=== PATIENT | male | born 1945 | race Caucasian/White ===

== ENCOUNTER 2023-07-23 02:11 | Emergency (ER) | payer MEDICARE, OTHER, SELFPAY ==
[2023-07-23 02:13] VITALS: BP 177/90
--- NOTE | 2023-07-23 02:47 | ED.GENMED ---
History of Present Illness
<MARCIA Alegria - Last Filed: 07/23/23 03:57>
General
Chief Complaint: Eye Problems
Source: patient
Exam Limitations: none
Time Seen by Provider: 07/23/23 02:20
Travel History
Have you had any contact with someone who has COVID-19?: No
Do you have any symptoms of coronavirus? Fever > 100 degrees, chills, cough, shortness of breath, sore throat, loss of taste or smell, muscle aches, or headache?: No
History of Present Illness
History of Present Illness:
78 y/o M with history of dry eyes presents to ED complaining of red eye and foreign body sensation in eye starting today. Patient states he felt like a piece of sand when in his eye this morning. He reports it has progressively been worsening and
reddening. Patient has been trying to splash water in eyes and use qtip to remove object but he has not had any relief. Patient does report he has been rubbing his eyes due his dry eyes. He recently saw opto last week for dry eyes and was given
drops and advised compresses. Patient reports tearing. He denies vision changes, headache, or dizziness.
If applicable-neuro sx onset
Onset of symptoms known: Yes
Date of onset of symptoms: 07/22/23
Past History
<MARCIA Alegria - Last Filed: 07/23/23 03:57>
Past History
ED Past Medical History: HTN, Hypercholesterolemia and Other (Prostate cancer with surgery, right knee arthritis, hypertension, hyperlipidemia)
Social History
Tobacco: Former smoker
Alcohol: Occasional
Living: with family
Family History
Family History: Negative Diabetes, Hypertension or CAD
Phy Exam
<MARCIA Alegria - Last Filed: 07/23/23 03:57>
General Physical Exam
General Presentation: well appearing and no apparent distress
General age: appears stated age
General Skin: warm and dry
General Habitus: normal
General Mental: alert
General Hydration: appears well hydrated
ENT Exam
ENT Exam: EOMI, TM's normal and pharynx normal
Eye Exam
Eye Exam: PERRL, EOMI, cornea clear and other (R eye injected with tearing )
Cardiovascular Exam
Cardiovascular Exam: regular rate/rhythm, no edema, no gallop and no murmur
Pulmonary Exam
Pulmonary Exam: lungs clear and no respiratory distress
Neurological Exam
Neurological Exam: alert and oriented x3
Musculoskeletal Exam
Musculoskeletal Exam: full ROM
Skin Exam
Skin Exam: normal color, warm/dry and no rash
Psychiatric Exam
Psychiatric Exam: normal mood/affect
Course
<MARCIA Alegria - Last Filed: 07/23/23 03:57>
Orders/Labs/Results
Orders:
Orders
07/23/23 03:04
Erythromycin (Ilotycin) [Erythromycin 0.5% Ophthalmic Ointment] See Dose Instructions OPHTH NOW STA
07/23/23 03:38
Tetracaine HCl [Tetracaine 0.5% Ophthalmic Solution] 1 drop .ROUTE .STK-MED ONE
07/23/23 03:40
Fluorescein Sodium [Ful-Loreto] 2 mg .ROUTE .STK-MED ONE
Vital Signs
Initial and Last Documented VS:
Initial Vital Signs
Temp Pulse Resp BP Pulse Ox
97.8 F 60 18 177/90 98
07/23/23 02:13 07/23/23 02:13 07/23/23 02:13 07/23/23 02:13 07/23/23 02:13
Last Documented Vital Signs
Temp Pulse Resp BP Pulse Ox
97.8 F 64 14 137/62 98
07/23/23 02:13 07/23/23 03:38 07/23/23 03:38 07/23/23 03:38 07/23/23 02:13
<Mu Ruiz MD - Last Filed: 07/23/23 03:17>
Orders/Labs/Results
Orders:
Orders
07/23/23 03:04
Erythromycin (Ilotycin) [Erythromycin 0.5% Ophthalmic Ointment] See Dose Instructions OPHTH NOW STA
07/23/23 03:38
Tetracaine HCl [Tetracaine 0.5% Ophthalmic Solution] 1 drop .ROUTE .STK-MED ONE
07/23/23 03:40
Fluorescein Sodium [Ful-Loreto] 2 mg .ROUTE .STK-MED ONE
Vital Signs
Initial and Last Documented VS:
Initial Vital Signs
Temp Pulse Resp BP Pulse Ox
97.8 F 60 18 177/90 98
07/23/23 02:13 07/23/23 02:13 07/23/23 02:13 07/23/23 02:13 07/23/23 02:13
Last Documented Vital Signs
Temp Pulse Resp BP Pulse Ox
97.8 F 64 14 137/62 98
07/23/23 02:13 07/23/23 03:38 07/23/23 03:38 07/23/23 03:38 07/23/23 02:13
<MARCIA Alegria - Last Filed: 07/23/23 03:57>
MDM/Problems Addressed
Differential Diagnosis Includes:
Dry eyes
Corneal abrasion
FB
<MARCIA Alegria - Last Filed: 07/23/23 03:57>
*Critical Care Note
Total Time (30-74mins, 75-104mins- exclusive of procedures): Not Applicable
ED Attending Note
<MARCIA Alegria - Last Filed: 07/23/23 03:57>
-
Portions of this chart may have been created with voice recognition software.� Occasional wrong word or��sound alike� substitutions may have occurred due to the inherent limitations of voice recognition software.
<Mu Ruiz MD - Last Filed: 07/23/23 03:17>
ED Attending Note
Patient seen and examined by attending physician: Yes
ED Attending Note:
Patient presents ED secondary to persistent foreign body sensation in his right eye along with redness and pain since this morning. Patient states that his symptoms started after he applied medication and rubbed his eye, which is routine for his
dry eyes. Patient states that his eye was closed at that time. Denies direct trauma. Denies blurred vision. Denies dizziness. Denies previous history of similar symptoms.
Physical Exam
General: mild distress, not acutely ill. afebrile
Head: nc/at. eomi. right eye: injected sclera noted
Neck: supple. normal range of motion
Heart: s1/s2 regular rate and rhythm, no murmur. equal radial pulses.
Lungs: no acute respiratory distress. clear bilaterally
Abdomen: normal bowel sounds. not tender.
Neuro: alert and oriented. no focal neurological deficits
Skin: no rash
Psychiatric: well kept. interactive and cooperative
Extremities: no edema. no calf tenderness.
Local anesthetic applied to his right eye and right eyelid everted, without identification of any foreign body. When fluorescein dye applied, uptake noted at 12:00 region likely indicative of corneal abrasion. However, it is difficult to exclude
entirely potential small foreign body, decision made to apply Dillon lens and irrigate the eye prior to discharge. Erythromycin eye ointment applied prior to discharge, along with referral to geospatial developer for reevaluation next week.
Discharge Plan
Departure
Patient Disposition: Home (Routine Discharge)
Date of Disposition: 07/23/23
Time of Disposition: 03:10
Patient with high blood pressure during this ER visit?: Yes
Condition: Good
Discharge Problem:
Abrasion, corneal
Instructions: Corneal Abrasion (DC)
Prescriptions:
No Action
[id number]-epa-fish oil 1 EACH capsule
1 cap PO DAILY
multivitamin with folic acid [Tab-A-Hadley] 1 TABLET tablet
1 tab PO DAILY
calcium carbonate [Oyster Shell Calcium 500] 500 MG tablet
500 mg PO DAILY
furosemide 40 MG tablet
40 mg PO DAILY Qty: 30 0RF
atorvastatin 20 MG tablet
20 mg PO QPM Qty: 30 0RF
diltiazem HCl 240 MG capsule,extended release 24hr
240 mg PO DAILY Qty: 30 0RF
metoprolol succinate 100 MG tablet extended release 24 hr
100 mg PO BID Qty: 60 0RF
digoxin [Digitek] 0.25 MG tablet
0.25 mg PO NOON Qty: 30 0RF
spironolactone 25 MG tablet
25 mg PO DAILY Qty: 30 0RF
apixaban [Eliquis] 5 MG tablet
5 mg PO BID Qty: 60 0RF
Referrals:
Rufus Schofield MD [Family Provider] -
Jodi Drake MD [Active] -
Activity Restrictions/Additional Instructions:
As discussed, please follow-up with referred geospatial developer for reevaluation next week. Please apply provided abx ointment to your right lower eyelid 5 times daily x 5 days.
Interventions
Interventions:
*Risk Screen - Suicide Last Done: 07/23/23 02:13
*General Assessment Last Done: 07/23/23 03:29
*Neglect/Abuse Screening Last Done: 07/23/23 02:13
*ED COVID-19 Vaccine History Last Done: 07/23/23 02:29
*Nursing Disposition Last Done: 07/23/23 03:40
Discharge Date and Time
Discharge Date/Time: 07/23/23 03:40
[2023-07-23] MEDS: ERYTHROMYCIN 0.5% OPHTHALMIC OINTMENT 1 APPLIC OPHTH (03:30)
--- NOTE | 2023-07-23 03:32 | EDRN ---
Irrigated pt's R eye with 500ml LR using Dillon lens per Dr Ruiz verbal order. Pt tolerated procedure well.
[2023-07-23 03:38] VITALS: BP 137/62
== END 2023-07-23 03:40 | disposition home or self-care (01) ==
LOC: EMR 02:11
PROVIDERS: EMERGENCY PHYSICIAN Emergency Medicine; FAMILY PHYSICIAN Family Medicine
DX: S05.01XA Injury of conjunctiva and corneal abrasion without foreign body, right eye, initial encounter (principal); X58.XXXA Exposure to other specified factors, initial encounter; I10 Essential (primary) hypertension; Z87.891 Personal history of nicotine dependence
CPT/HCPCS: 99283

== ENCOUNTER 2024-05-20 13:01 | Emergency (ER) | payer MEDICARE, OTHER, SELFPAY ==
[2024-05-20] VITALS (26 sets, daily range): BP systolic 107–158; BP diastolic 60–116; BMI 27.9
--- NOTE | 2024-05-20 13:10 | ED.GENMED ---
ED Provider Triage
<AYED Pyle - Last Filed: 05/20/24 13:14>
-
Patient seen by provider in Triage?: Seen in Triage
Attestation: A medical screening examination has been initiated by a qualified medical provider. Based on the assessment performed at this time, it has been determined that an emergent medical condition may exist and the patient has been informed
that further medical evaluation and possible additional diagnostic testing may be needed.
HPI: PT c/o of palpitations today that started while playing golf. He has history of afib. Had Cardioversion in past . Normally he is in NSR. No blood thinners. Pt denies any shortness of breath with this. Pt is followed by DR Awan
GENERAL: Alert , in no apparent distress
EYE: No visual abnormalities.
NECK: Trachea midline
ENT: No visible abnormalities.
LUNGS: No acute respiratory distress
CV: Heart rate irregular tachycardic
NEUROLOGICAL: Alert and oriented
SKIN: Skin intact. No visible changes.
MUSCULOSKELETAL: Moving extremities normally
PSYCH: Normal and appropriate interaction.
This is a medical evaluation conducted in person to initiate diagnostic evaluation and provide initial therapeutics. Please see further documentation by the treating clinician.
Patient's EKG shows A-fib at a heart rate of 143. Patient was taken to the treatment area.
History of Present Illness
<AYDE Pyle - Last Filed: 05/20/24 13:14>
General
Chief Complaint: Heart Rate Problem
Time Seen by Provider: 05/20/24 13:14
<Lucien Ramos DO - Last Filed: 05/20/24 15:59>
General
Source: patient
Exam Limitations: none
History of Present Illness
History of Present Illness:
See MDM
Past History
<AYDE Pyle - Last Filed: 05/20/24 13:14>
Past History
ED Past Medical History: HTN, Hypercholesterolemia and Other (Prostate cancer with surgery, right knee arthritis, hypertension, hyperlipidemia)
Social History
Tobacco: Former smoker
Alcohol: Occasional
Living: with family
Family History
Family History: Negative Diabetes, Hypertension or CAD
<Lucien Ramos, DO - Last Filed: 05/20/24 15:59>
Past History
ED Past Medical History: Arrthythmia
Phy Exam
<Lucien Ramos, DO - Last Filed: 05/20/24 15:59>
Physical Exam
Physical Exam:
See MDM
Course
<AYDE Pyle - Last Filed: 05/20/24 13:14>
Orders/Labs/Results
Orders:
Orders
05/20/24 13:02
EKG [Electrocardiogram (*1)] Urgent
Reason for Study: Palpitations
EKG- Treatment ONCE
05/20/24 13:17
Diltiazem HCl [Cardizem] 20 mg IV NOW STA
05/20/24 13:23
Complete Blood Count/With Diff Urgent
Comprehensive Metabolic Panel Urgent
TSH Reflex To Free T4 Urgent
05/20/24 15:42
Propofol [Diprivan] 20 ml .ROUTE .STK-MED
Abnormal Lab Results
05/20/24
13:23
RBC 3.38 L 10^6/uL
(4.70-6.10)
Hgb 12.2 L g/dL
(13.0-18.0)
Hct 35.9 L %
(39.0-52.0)
MCV 106.2 H fL
(80.0-94.0)
MCH 36.1 H pg
(27.0-31.0)
RDW 14.6 H %
(11.5-14.5)
Abs Immat Gran (auto) 0.1 H 10^3/uL
(0-0.05)
Absolute Monos (auto) 1.0 H 10^3/uL
(0.1-0.6)
Immature Gran % 0.7 H %
(0-0.5)
Lymphocytes % 19.9 L %
(20.5-51.1)
Monocytes % 12.0 H %
(1.7-9.3)
Glucose 118 H mg/dl
(70-99)
AST 73 H U/L
(17-59)
05/20/24 13:23
05/20/24 13:23
Vital Signs
Initial and Last Documented VS:
Initial Vital Signs
Pulse Resp BP Pulse Ox
73 20 143/109 98
05/20/24 13:09 05/20/24 13:09 05/20/24 13:09 05/20/24 13:09
Last Documented Vital Signs
Temp Pulse Resp BP Pulse Ox
98.3 F 114 22 139/86 95
05/20/24 15:48 05/20/24 15:50 05/20/24 15:50 05/20/24 15:50 05/20/24 15:50
<Lucien Ramos, DO - Last Filed: 05/20/24 15:59>
Orders/Labs/Results
Orders:
Orders
05/20/24 13:02
EKG [Electrocardiogram (*1)] Urgent
Reason for Study: Palpitations
EKG- Treatment ONCE
05/20/24 13:17
Diltiazem HCl [Cardizem] 20 mg IV NOW STA
05/20/24 13:23
Complete Blood Count/With Diff Urgent
Comprehensive Metabolic Panel Urgent
TSH Reflex To Free T4 Urgent
05/20/24 15:42
Propofol [Diprivan] 20 ml .ROUTE .STK-MED
Abnormal Lab Results
05/20/24
13:23
RBC 3.38 L 10^6/uL
(4.70-6.10)
Hgb 12.2 L g/dL
(13.0-18.0)
Hct 35.9 L %
(39.0-52.0)
MCV 106.2 H fL
(80.0-94.0)
MCH 36.1 H pg
(27.0-31.0)
RDW 14.6 H %
(11.5-14.5)
Abs Immat Gran (auto) 0.1 H 10^3/uL
(0-0.05)
Absolute Monos (auto) 1.0 H 10^3/uL
(0.1-0.6)
Immature Gran % 0.7 H %
(0-0.5)
Lymphocytes % 19.9 L %
(20.5-51.1)
Monocytes % 12.0 H %
(1.7-9.3)
Glucose 118 H mg/dl
(70-99)
AST 73 H U/L
(17-59)
05/20/24 13:23
05/20/24 13:23
Vital Signs
Initial and Last Documented VS:
Initial Vital Signs
Pulse Resp BP Pulse Ox
73 20 143/109 98
05/20/24 13:09 05/20/24 13:09 05/20/24 13:09 05/20/24 13:09
Last Documented Vital Signs
Temp Pulse Resp BP Pulse Ox
98.3 F 114 22 139/86 95
05/20/24 15:48 05/20/24 15:50 05/20/24 15:50 05/20/24 15:50 12/17/24 15:50
Procedures
<Lucien Ramos, DO - Last Filed: 05/20/24 15:59>
Moderate Sedation
ASA Risk Score: Class II
Chart and allergies reviewed: Yes
Consent for anesthesia obtained: Yes
Time out completed (validating right patient & procedure): Yes
Moderate Sedation Start Time(when first medication is given): 15:48
History of difficult intubation: No
Airway free of obstruction: Yes
Patient has a gag reflex: Yes
Patient is able to open mouth: Yes
Patient has no dentures: No
Patient has no loose teeth: Yes
Medication administered by Provider during Moderate Sedation: IV Propofol (mg)
Total dose administered: 75
Time drug administered: 15:48
Moderate Sedation Procedure End Time: 16:00
Comment: Time out 1546
Cardioversion
Indication:: Afib
Performed by:: Lucien Ramos DO
Synchronized?: Yes
Energy Used: 150 joules
Number of attempts: 1
Successful?: Yes
ASA Risk Score: Class II
Any reaction or bad outcome to prior sedation/anesthesia?: No history of a reaction
Sedation level to be attained: moderate
Chart and allergies reviewed: Yes
Patient reassessed prior to sedation: Yes
Time out completed at (validating right patient & procedure): 15:46
History of difficult intubation: No
Airway free of obstruction: Yes
Patient has a gag reflex: Yes
Patient is able to open mouth: Yes
Patient has no dentures: No
Patient has no loose teeth: No
Medication administered by Provider during Moderate Sedation: IV Propofol (mg)
Total dose administered: 75
Time drug administered: 15:48
Start Time: 15:48
Stop Time: 16:00
<Lucien Ramos, DO - Last Filed: 05/20/24 15:59>
MDM/Problems Addressed
Differential Diagnosis Includes:
HPI and [facility] [place] Narrative:
79-year-old male presenting for evaluation of palpitations since 9 AM. Patient has a history of A-fib and claims compliance with Eliquis. Patient states he has had intermittent episodes over the past several weeks but they were short-lived.
On exam, patient is well-appearing nontoxic but he is tachycardic. EKG confirms A-fib with RVR. Will give dose of Cardizem and obtain basic blood work. If patient remains in symptomatic A-fib, will consent for cardioversion. Patient states he
has tolerated cardioversion in the past without complication
Physical exam
General: Well appearing and non-toxic
HEENT: protecting airway
Neck: appears supple
CV: No evidence of cyanosis. Tachycardic and irregular
Resp: No accessory muscle use
Abd: Non-distended
Extremities: No deformities
Neuro: alert
Psych: Normal affect
Skin: Intact
Problems Addressed including Acute and Chronic Conditions affecting care:
1. A-fib with RVR
Acuity: acute
Prognosis: unstable
Details: Will give dose of IV Cardizem and attempt to chemically cardiovert. If patient remains in symptomatic A-fib, will consider cardioversion. He claims compliance with Eliquis
Updates
2:50 PM patient still tachycardic and in A-fib. Although feeling better, patient signed consent for moderate sedation and synchronized cardioversion
4 PM patient tolerated cardioversion well and without complication. Patient now in sinus rhythm
Differential Diagnosis (but not limited to): A-fib with RVR, ACS, hypothyroidism
Testing considered: Troponin but he is denying chest pain
Drug therapy (if applicable): OTC meds, please see d/c instruction regarding Rx drugs
Amount and/or Complexity of Data Reviewed
Clinical info obtained from: Patient
External data reviewed: N/A
Labs I independently reviewed (but not limited to): Electrolytes within normal limits
Radiology: N/A
Pulse Ox: not hypoxic
EKG independently reviewed: A-fib with RVR, normal axis, no STEMI
Insurance Advisor: A-fib
Critical Care: The high probability of a clinically significant, sudden or life threatening deterioration of the cardiovascular system(s) required my full and direct attention, intervention and personal management. The aggregate critical care time
was 33 minutes. This time is in addition to time spent performing reported procedures but includes the following:
[x] Data Review and interpretation
[x] Patient assessment and monitoring of vital signs
[x] Documentation
[x] Medication orders and management
Risk of Complication:
Social Determinants of health: Good social support
Discussed with other providers: N/A
Escalation of Care includes Admit/Obs: After being observed in the Emergency Department, pt stable for discharge.
Occasional wrong word or 'sound a like' substitutions may have occurred due to the inherent limitations of voice recognition software. Read the chart carefully and recognize, using context, where substitutions have occurred.
<Lucien Ramos DO - Last Filed: 05/20/24 15:59>
*Critical Care Note
Total Time (30-74mins, 75-104mins- exclusive of procedures): 33 min
ED Attending Note
<AYDE Pyle - Last Filed: 05/20/24 13:14>
-
Portions of this chart may have been created with voice recognition software.� Occasional wrong word or��sound alike� substitutions may have occurred due to the inherent limitations of voice recognition software.
Discharge Plan
Departure
Patient Disposition: Home (Routine Discharge)
Date of Disposition: 05/20/24
Time of Disposition: 15:58
Patient with high blood pressure during this ER visit?: No
Discharge Problem:
Atrial fibrillation
Instructions: Atrial Fibrillation (DC), Cardioversion - Discharge instructions, MODERATE SEDATION ADULT
Prescriptions:
No Action
ciunc-0f-zsf-epa-fish oil 1 EACH capsule
1 cap PO DAILY
multivitamin with folic acid [Tab-A-Hadley] 1 TABLET tablet
1 tab PO DAILY
calcium carbonate [Oyster Shell Calcium 500] 500 MG tablet
500 mg PO DAILY
furosemide 40 MG tablet
40 mg PO DAILY Qty: 30 0RF
atorvastatin 20 MG tablet
20 mg PO QPM Qty: 30 0RF
diltiazem HCl 240 MG capsule,extended release 24hr
240 mg PO DAILY Qty: 30 0RF
metoprolol succinate 100 MG tablet extended release 24 hr
100 mg PO BID Qty: 60 0RF
digoxin [Digitek] 0.25 MG tablet
0.25 mg PO NOON Qty: 30 0RF
spironolactone 25 MG tablet
25 mg PO DAILY Qty: 30 0RF
apixaban [Eliquis] 5 MG tablet
5 mg PO BID Qty: 60 0RF
Referrals:
Rufus Schofield MD [Family Provider] -
Activity Restrictions/Additional Instructions:
Please return for any worsening symptoms.
You may return at any time if you have further concerns.
Please follow up with your doctor at the first available appointment, preferably this week.
Thank you for choosing [facility].
Interventions
Interventions:
*Risk Screen - Suicide Last Done: 05/20/24 13:09
*General Assessment Last Done: 05/20/24 13:09
*Neglect/Abuse Screening Last Done: 05/20/24 13:09
ED- Fall Risk Assessment Last Done: 05/20/24 13:25
*ED COVID-19 Vaccine History Last Done: 05/20/24 13:25
ED- Cardiac Assessment Last Done: 05/20/24 13:25
ED- Pulmonary Assessment Last Done: 05/20/24 13:25
Discharge Date and Time
Print Language: BENGALI
[2024-05-20] MEDS: CARDIZEM 20 MG IV (13:26)
--- NOTE | 2024-05-20 13:29 | EDRN ---
Patient with c/o palpitations that started while he was playing golf. Denies c/o chest pain. Patient medicated with Cardizem 20mg IV.
[2024-05-20 13:32] LABS: % Basophils 0.6 % (0-2); % Eosinophils 1.3 % (0-6); % Immature Granulocytes 0.7 % (0-0.5); % Lymphocytes 19.9 % (20.5-51.1); % Neutrophils 65.5 % (42.2-75.2); Absolute Basophils 0.1 10^3/uL (0-0.2); Absolute Eosinophils 0.1 10^3/uL (0-0.7); Absolute Immature Granulocytes 0.1 10^3/uL (0-0.05); Absolute Lymphocytes 1.7 10^3/uL (1.2-3.4); Absolute Neutrophils 5.5 10^3/uL (1.4-6.5); Hematocrit 35.9 % (39.0-52.0); Hemoglobin 12.2 g/dL (13.0-18.0); Mean Corpuscular Hgb 36.1 pg (27.0-31.0); Mean Corpuscular Volume 106.2 fL (80.0-94.0); Mean Platelet Volume 10.2 fL (7.4-10.4); Nucleated Red Blood Cells % 0 % (-); Platelet Count 229 10^3/uL (130-400); Red Blood Cell Count 3.38 10^6/uL (4.70-6.10); Red Cell Dist. Width 14.6 % (11.5-14.5); White Blood Cell Count 8.4 10^3/uL (4.8-10.8)
[2024-05-20 14:14] LABS: ALT (SGPT) 32 U/L (0-50); AST (SGOT) 73 U/L (17-59); Albumin 4.7 g/dl (3.5-5.0); Alkaline Phosphatase 124 U/L (38-126); Blood Urea Nitrogen 18 mg/dl (9-20); Calcium 9.4 mg/dl (8.4-10.2); Carbon Dioxide 22 mmol/L (22-30); Chloride 105 mmol/L (98-107); Estimated Creatinine Clearance 69 ml/min; Glucose 118 mg/dl (70-99); Potassium 4.5 mmol/L (3.5-5.1); Sodium 142 mmol/L (135-145); Total Bilirubin 1.1 mg/dl (0.2-1.3); Total Protein 7.5 g/dl (6.3-8.2); eGFR > 60.00
[2024-05-20 14:20] LABS: TSH Reflex To Free T4 1.59 uIU/ml (0.47-4.68)
--- NOTE | 2024-05-20 15:51 | EDRN ---
Patient received total of Diprivan 75mg IV by . Patient shocked with 150 J. Patient converted into sinus mechelle with PAC's
== END 2024-05-20 17:09 | disposition home or self-care (01) ==
LOC: EMR 13:01
PROVIDERS: Nurse Practitioner; EMERGENCY PHYSICIAN Student in an Organized Health Care Education/Training Program; FAMILY PHYSICIAN Family Medicine
DX: I48.91 Unspecified atrial fibrillation (principal); I10 Essential (primary) hypertension; E78.00 Pure hypercholesterolemia, unspecified; M19.90 Unspecified osteoarthritis, unspecified site; Z79.01 Long term (current) use of anticoagulants; Z85.46 Personal history of malignant neoplasm of prostate; Z87.891 Personal history of nicotine dependence; Z88.6 Allergy status to analgesic agent; Z88.5 Allergy status to narcotic agent
CPT/HCPCS: 99291; 92960; 99152; 96374; 80053; 84443; 85025; 93005

== ENCOUNTER → 2024-08-01 07:26 | Outpatient (REF) | payer MEDICARE, OTHER, SELFPAY | LOC: RAD 07:26 | PROVIDERS: ATTENDING PHYSICIAN Family Medicine; FAMILY PHYSICIAN Family Medicine | DX: M54.50 Low back pain, unspecified (principal); G89.29 Other chronic pain; M54.41 Lumbago with sciatica, right side; M54.42 Lumbago with sciatica, left side | CPT/HCPCS: 72110 ==

== ENCOUNTER → 2024-08-08 12:28 | Outpatient (REF) | payer MEDICARE, OTHER, SELFPAY | LOC: MRI 3T 12:28 | PROVIDERS: ATTENDING PHYSICIAN Physician Assistant; FAMILY PHYSICIAN Family Medicine | DX: M54.16 Radiculopathy, lumbar region (principal) | CPT/HCPCS: 72148 ==

== ENCOUNTER → 2024-09-23 08:01 | Outpatient (REF) | payer MEDICARE, OTHER, SELFPAY | LOC: RCS 08:01 | PROVIDERS: ATTENDING PHYSICIAN Internal Medicine Cardiovascular Disease; FAMILY PHYSICIAN Family Medicine | DX: I77.810 Thoracic aortic ectasia (principal); Z86.79 Personal history of other diseases of the circulatory system | CPT/HCPCS: 93306 ==

== ENCOUNTER 2024-09-30 09:27 | Emergency (ER) | payer MEDICARE, OTHER, SELFPAY ==
[2024-09-30 09:28] VITALS: BP 186/91
[2024-09-30 09:56] VITALS: BMI 28.7
[2024-09-30 10:00] VITALS: BP 153/64
--- NOTE | 2024-09-30 10:38 | ED.GENMED ---
History of Present Illness
<Larry Wolff, DO - Last Filed: 09/30/24 12:26>
General
Chief Complaint: Heart Rate Problem
Time Seen by Provider: 09/30/24 09:47
<Shivam Desai MD, Resident - Last Filed: 09/30/24 13:24>
History of Present Illness
History of Present Illness:
This is a 79-year-old male with past medical history of atrial fibrillation on Eliquis who presents to the ED due to variable heart rate reading and elevated blood pressure. Patient reports he checked his heart rate last night, although
asymptomatic at that time, he noticed his heart rate bounced from the 50s to 80s back to the 50s over a period of a few seconds. In addition he noted that his blood pressure was elevated at 180/97 and on repeat systolic improved to 150. Throughout
this period, He was asymptomatic, denied symptoms of palpitations, syncope, shortness of breath. At bedside today, he has no acute complaints.
Past History
<Larry Wolff, DO - Last Filed: 09/30/24 12:26>
Past History
ED Past Medical History: Arrthythmia, HTN, Hypercholesterolemia and Other (Prostate cancer with surgery, right knee arthritis, hypertension, hyperlipidemia)
Social History
Tobacco: Former smoker
Alcohol: Occasional
Living: with family
Family History
Family History: Negative Diabetes, Hypertension or CAD
<Shivam Desai MD, Resident - Last Filed: 09/30/24 13:24>
Social History
Alcohol: Daily
Drug: None
Review of Systems
<Shivam Desai MD, Resident - Last Filed: 09/30/24 13:24>
Review of Systems
All Other Systems: ROS reviewed and negative except as documented in HPI and ROS
Phy Exam
<Shivam Desai MD, Resident - Last Filed: 09/30/24 13:24>
General Physical Exam
General Presentation: well appearing and no apparent distress
General Skin: warm and dry
General Mental: alert
ENT Exam
ENT Exam: EOMI
Cardiovascular Exam
Cardiovascular Exam: regular rate/rhythm and no edema
Systolic Murmur: 2/6
Pulmonary Exam
Pulmonary Exam: lungs clear and no respiratory distress
Gastrointestinal Exam
Gastrointestinal Exam: normal bowel sounds, non tender and soft
Neurological Exam
Neurological Exam: alert and oriented x3
Musculoskeletal Exam
Musculoskeletal Exam: full ROM
Psychiatric Exam
Psychiatric Exam: normal mood/affect
Course
<Larry Wolff, DO - Last Filed: 09/30/24 12:26>
Orders/Labs/Results
Orders:
Orders
09/30/24 09:31
Electrocardiogram (*1) Urgent
Reason for Study: Atrial Fibrillation
EKG- Treatment ONCE
09/30/24 11:42
Basic Metabolic Panel Urgent
Complete Blood Count/With Diff Urgent
Magnesium Urgent
TSH Reflex To Free T4 Urgent
09/30/24 12:25
Magnesium Oxide 1,000 mg PO NOW STA
Abnormal Lab Results
09/30/24
11:42
RBC 2.98 L 10^6/uL
(4.70-6.10)
Hgb 11.1 L g/dL
(13.0-18.0)
Hct 32.0 L %
(39.0-52.0)
MCV 107.4 H fL
(80.0-94.0)
MCH 37.2 H pg
(27.0-31.0)
Absolute Monos (auto) 1.0 H 10^3/uL
(0.1-0.6)
Lymphocytes % 20.4 L %
(20.5-51.1)
Monocytes % 12.7 H %
(1.7-9.3)
Glucose 111 H mg/dl
(70-99)
Magnesium 1.5 L mg/dl
(1.6-2.3)
09/30/24 11:42
09/30/24 11:42
Vital Signs
Initial and Last Documented VS:
Initial Vital Signs
Temp Pulse Resp BP Pulse Ox
97.6 F 82 16 186/91 98
09/30/24 09:28 09/30/24 09:28 09/30/24 09:28 09/30/24 09:28 09/30/24 09:28
Last Documented Vital Signs
Temp Pulse Resp BP Pulse Ox
97.6 F 59 17 143/72 97
09/30/24 09:28 09/30/24 12:30 09/30/24 12:30 09/30/24 12:00 09/30/24 12:30
<Shivam Desai MD, Resident - Last Filed: 09/30/24 13:24>
Orders/Labs/Results
Orders:
Orders
09/30/24 09:31
Electrocardiogram (*1) Urgent
Reason for Study: Atrial Fibrillation
EKG- Treatment ONCE
09/30/24 11:42
Basic Metabolic Panel Urgent
Complete Blood Count/With Diff Urgent
Magnesium Urgent
TSH Reflex To Free T4 Urgent
09/30/24 12:25
Magnesium Oxide 1,000 mg PO NOW STA
Abnormal Lab Results
09/30/24
11:42
RBC 2.98 L 10^6/uL
(4.70-6.10)
Hgb 11.1 L g/dL
(13.0-18.0)
Hct 32.0 L %
(39.0-52.0)
MCV 107.4 H fL
(80.0-94.0)
MCH 37.2 H pg
(27.0-31.0)
Absolute Monos (auto) 1.0 H 10^3/uL
(0.1-0.6)
Lymphocytes % 20.4 L %
(20.5-51.1)
Monocytes % 12.7 H %
(1.7-9.3)
Glucose 111 H mg/dl
(70-99)
Magnesium 1.5 L mg/dl
(1.6-2.3)
09/30/24 11:42
09/30/24 11:42
Vital Signs
Initial and Last Documented VS:
Initial Vital Signs
Temp Pulse Resp BP Pulse Ox
97.6 F 82 16 186/91 98
09/30/24 09:28 09/30/24 09:28 09/30/24 09:28 09/30/24 09:28 09/30/24 09:28
Last Documented Vital Signs
Temp Pulse Resp BP Pulse Ox
97.6 F 59 17 143/72 97
09/30/24 09:28 09/30/24 12:30 09/30/24 12:30 09/30/24 12:00 09/30/24 12:30
<Shivam Desai MD, Resident - Last Filed: 09/30/24 13:24>
MDM/Problems Addressed
MDM/Problems Addressed:
79-year-old male with past medical history of atrial fibrillation on Eliquis who presents to the ED due to variable heart rate reading and elevated blood pressure. Patient is well appearing in no acute distress, lungs clear to auscultation. EKG on
presentation in NSR with prolonged QTC. At this time, will order labs, and re-evaluate patient.
update: Low Mg level 1.5 on Lab otherwise unremarkable. Will administer Oral MagOxide and discharge home to follow up with PCP.
<Shivam Desai MD, Resident - Last Filed: 09/30/24 13:24>
*Critical Care Note
Total Time (30-74mins, 75-104mins- exclusive of procedures): Not Applicable
ED Attending Note
<Larry Wolff DO - Last Filed: 09/30/24 12:26>
ED Attending Note
Patient seen and examined by attending physician: Yes
I performed a history and physical exam of patient and discussed management with resident, I reviewed resident's note and agree with documented findings and plan of care.: Yes
ED Attending Note:
The patient presents with concerns of variable heart rates. His rates varied from 50s to 80s and reports that his blood pressure was slightly high. He has a history of atrial fibrillation. Review of old records show an echo that showed mildly
dilated aortic root along with moderate to severe mitral regurgitation. This was read by Dr. Hinton. His EKG shows a sinus rhythm, his QTc is slightly prolonged at 480 ms. Will check labs and reassess.
-
Portions of this chart may have been created with voice recognition software.� Occasional wrong word or��sound alike� substitutions may have occurred due to the inherent limitations of voice recognition software.
Discharge Plan
Departure
Patient Disposition: Home (Routine Discharge)
Date of Disposition: 09/30/24
Time of Disposition: 12:19
Patient with high blood pressure during this ER visit?: Yes
Discharge Problem:
Essential (primary) hypertension, Asymptomatic PVCs
Prescriptions:
No Action
koblp-[id number]-ale-epa-fish oil 1 EACH capsule
1 cap PO DAILY
multivitamin with folic acid [Tab-A-Hadley] 1 TABLET tablet
1 tab PO DAILY
calcium carbonate [Oyster Shell Calcium 500] 500 MG tablet
500 mg PO DAILY
furosemide 40 MG tablet
40 mg PO DAILY Qty: 30 0RF
atorvastatin 20 MG tablet
20 mg PO QPM Qty: 30 0RF
diltiazem HCl 240 MG capsule,extended release 24hr
240 mg PO DAILY Qty: 30 0RF
metoprolol succinate 100 MG tablet extended release 24 hr
100 mg PO BID Qty: 60 0RF
digoxin [Digitek] 0.25 MG tablet
0.25 mg PO NOON Qty: 30 0RF
spironolactone 25 MG tablet
25 mg PO DAILY Qty: 30 0RF
apixaban [Eliquis] 5 MG tablet
5 mg PO BID Qty: 60 0RF
Referrals:
Rufus Schofield MD [Family Provider] -
Activity Restrictions/Additional Instructions:
Please return for any new or worsening symptoms.
You may return at any time if you have further concerns.
Thank you for choosing [facility].
Interventions
Interventions:
*Risk Screen - Suicide Last Done: 09/30/24 09:59
*General Assessment Last Done: 09/30/24 09:57
*Neglect/Abuse Screening Last Done: 09/30/24 09:59
*ED- Fall Risk Assessment Last Done: 09/30/24 09:57
*ED COVID-19 Vaccine History Last Done: 09/30/24 09:57
*Nursing Disposition Last Done: 09/30/24 12:41
ED- Cardiac Assessment Last Done: 09/30/24 10:02
ED- Pulmonary Assessment Last Done: 09/30/24 10:02
Discharge Date and Time
Discharge Date/Time: 09/30/24 12:43
Print Language: MALTESE
[2024-09-30 11:00] VITALS: BP 139/66
[2024-09-30 11:51] LABS: % Basophils 0.8 % (0-2); % Eosinophils 2.7 % (0-6); % Immature Granulocytes 0.4 % (0-0.5); % Lymphocytes 20.4 % (20.5-51.1); % Monocytes 12.7 % (1.7-9.3); Absolute Basophils 0.1 10^3/uL (0-0.2); Absolute Eosinophils 0.2 10^3/uL (0-0.7); Absolute Lymphocytes 1.6 10^3/uL (1.2-3.4); Absolute Neutrophils 4.8 10^3/uL (1.4-6.5); Hemoglobin 11.1 g/dL (13.0-18.0); Mean Corp Hgb Conc. 34.7 g/dL (33.0-37.0); Mean Corpuscular Hgb 37.2 pg (27.0-31.0); Mean Corpuscular Volume 107.4 fL (80.0-94.0); Mean Platelet Volume 9.7 fL (7.4-10.4); Nucleated Red Blood Cells % 0.3 % (-); Platelet Count 181 10^3/uL (130-400); Red Blood Cell Count 2.98 10^6/uL (4.70-6.10); Red Cell Dist. Width 14.3 % (11.5-14.5); White Blood Cell Count 7.7 10^3/uL (4.8-10.8)
[2024-09-30 12:00] VITALS: BP 143/72
[2024-09-30 12:03] LABS: Blood Urea Nitrogen 18 mg/dl (9-20); Calcium 9.5 mg/dl (8.4-10.2); Carbon Dioxide 26 mmol/L (22-30); Chloride 107 mmol/L (98-107); Estimated Creatinine Clearance 75 ml/min; Glucose 111 mg/dl (70-99); Magnesium 1.5 mg/dl (1.6-2.3); Potassium 5.1 mmol/L (3.5-5.1); Sodium 140 mmol/L (135-145); eGFR > 60.00
[2024-09-30] MEDS: MAGNESIUM OXIDE 1000 MG PO (12:33)
[2024-09-30 12:34] LABS: TSH Reflex To Free T4 1.05 uIU/ml (0.47-4.68)
== END 2024-09-30 12:43 | disposition home or self-care (01) ==
LOC: EMR 09:27
PROVIDERS: EMERGENCY PHYSICIAN Emergency Medicine; FAMILY PHYSICIAN Family Medicine
DX: I49.3 Ventricular premature depolarization (principal); I10 Essential (primary) hypertension; I48.91 Unspecified atrial fibrillation; E78.00 Pure hypercholesterolemia, unspecified; I34.0 Nonrheumatic mitral (valve) insufficiency; Z85.46 Personal history of malignant neoplasm of prostate; Z87.891 Personal history of nicotine dependence; Z79.01 Long term (current) use of anticoagulants
CPT/HCPCS: 99284; 80048; 83735; 84443; 85025; 93005

== ENCOUNTER 2024-10-20 23:58 | Emergency (ER) | payer MEDICARE, OTHER, SELFPAY ==
[2024-10-21 00:04] VITALS: BP 131/70; BMI 29.0
--- NOTE | 2024-10-21 00:20 | EDRN ---
Patient had knife with him, placed in a bag and labeled and given to security to lock in the safe.
[2024-10-21 00:49] LABS: % Basophils 0.9 % (0-2); % Eosinophils 2.6 % (0-6); % Immature Granulocytes 0.3 % (0-0.5); % Lymphocytes 36.5 % (20.5-51.1); % Neutrophils 52.7 % (42.2-75.2); Absolute Basophils 0.1 10^3/uL (0-0.2); Absolute Eosinophils 0.2 10^3/uL (0-0.7); Absolute Lymphocytes 2.5 10^3/uL (1.2-3.4); Absolute Monocytes 0.5 10^3/uL (0.1-0.6); Absolute Neutrophils 3.6 10^3/uL (1.4-6.5); Hematocrit 33.9 % (39.0-52.0); Hemoglobin 11.8 g/dL (13.0-18.0); Mean Corp Hgb Conc. 34.8 g/dL (33.0-37.0); Mean Corpuscular Hgb 37.2 pg (27.0-31.0); Mean Corpuscular Volume 106.9 fL (80.0-94.0); Mean Platelet Volume 10.3 fL (7.4-10.4); Nucleated Red Blood Cells % 0 % (-); Platelet Count 130 10^3/uL (130-400); Red Blood Cell Count 3.17 10^6/uL (4.70-6.10); Red Cell Dist. Width 14.1 % (11.5-14.5); White Blood Cell Count 6.8 10^3/uL (4.8-10.8)
[2024-10-21 00:53] LABS: Troponin I 0.019 ng/ml
[2024-10-21 00:58] LABS: ALT (SGPT) 43 U/L (0-50); AST (SGOT) 109 U/L (17-59); Alkaline Phosphatase 201 U/L (38-126); Blood Urea Nitrogen 34 mg/dl (9-20); Calcium 8.4 mg/dl (8.4-10.2); Carbon Dioxide 20 mmol/L (22-30); Chloride 115 mmol/L (98-107); Estimated Creatinine Clearance 60 ml/min; Glucose 111 mg/dl (70-99); Potassium 4.6 mmol/L (3.5-5.1); Sodium 146 mmol/L (135-145); Total Bilirubin 0.6 mg/dl (0.2-1.3); Total Protein 6.9 g/dl (6.3-8.2); eGFR > 60.00
[2024-10-21 01:00] VITALS: BP 122/67
[2024-10-21 01:39] VITALS: BP 129/68
[2024-10-21 02:00] VITALS: BP 128/65
--- NOTE | 2024-10-21 02:05 | ED.GENMED ---
History of Present Illness
General
Chief Complaint: Fainting/Passed Out
Source: patient, spouse and ambulance crew
Exam Limitations: none
Time Seen by Provider: 10/21/24 00:32
Nursing documentation reviewed up to this point in time: agreed with
History of Present Illness
History of Present Illness:
79-year-old male with past medical history of hypertension, hyperlipidemia, atrial fibrillation on Eliquis, mitral regurgitation who presents to the emergency room for evaluation after syncopal episode. Patient reports that he was sitting in his
chair watching TV and he got up 'and the next thing I know, I am on the ground.' He believes he passed out. He does not believe he hit his head or sustain any traumatic injuries. He says he did not have any chest pain or palpitations prior to the
episode and has not had the symptoms since. He says he has chronic fatigue, leg weakness, shortness of breath that has been attributed to mitral regurgitation and spinal stenosis but says these symptoms are not acutely changed.
Past History
Past History
ED Past Medical History: Arrthythmia, HTN, Hypercholesterolemia and Other (Prostate cancer with surgery, right knee arthritis, hypertension, hyperlipidemia)
Social History
Tobacco: Former smoker
Alcohol: Daily
Drug: None
Living: with family
Family History
Family History: Negative Diabetes, Hypertension or CAD
Review of Systems
Review of Systems
All Other Systems: ROS reviewed and negative except as documented in HPI and ROS
Constitutional: Denies fever
Respiratory: Denies trouble breathing
Cardiac: Reports syncope; Denies chest pain or palpitations
ABD/GI: Denies abdominal pain, nausea or vomiting
: Denies flank pain
Musculoskeletal: Denies neck pain or back pain
Neurological: Denies headache
Phy Exam
Physical Exam
Physical Exam:
General: Awake, alert, oriented x3; no acute distress
Head: Normocephalic, atraumatic
Eyes: Conjunctiva normal
Throat: Airway intact, handling secretions
Neck: Trachea midline, no cervical spine tenderness and full range of motion without pain
Lungs: Clear to auscultation bilaterally, no wheezing, rales, rhonchi
Heart: Regular rate and rhythm, systolic murmur
Abd: Soft, non distended, nontender with no masses
Back: No signs of trauma the back or flank and no tenderness in the thoracic or lumbar spine
Neuro: Cranial nerves grossly intact, speech fluid, no gross motor or sensory deficits
Extremities: Atraumatic, no edema in extremities, equal pulses in all extremities
Scores
Heart Failure Risk
Heart Failure Risk Score: Not Applicable
Heart Score for Chest Pain Patients
STEMI patient?: Not applicable
Withdrawal Assessment of Alcohol
Withdrawal Assessment Completed?: Not applicable
Course
Orders/Labs/Results
Orders:
Orders
10/21/24 00:03
Electrocardiogram (*1) Urgent
Reason for Study: Syncope
Cardiac Monitoring- Treatment ONCE
EKG- Treatment ONCE
IV Insert/Care/Rem.- Treatment PRN
O2 Therapy [RESP] Urgent
Titrate/Wean O2 to maintain O2 sat greater than (%): 90
Special Instructions: Maintain sats >/=90%
Pulse Ox/spot Check [RESP] Urgent
Quantity: 1
Special Instructions: ON ROOM AIR
10/21/24 00:17
Complete Blood Count/With Diff Urgent
Comprehensive Metabolic Panel Urgent
Troponin I Urgent
10/21/24 00:50
CT Head W/o Iv Contrast Urgent
Comment:
Reason For Exam: syncope and fall, on AC
Abnormal Lab Results
10/21/24
00:17
RBC 3.17 L 10^6/uL
(4.70-6.10)
Hgb 11.8 L g/dL
(13.0-18.0)
Hct 33.9 L %
(39.0-52.0)
MCV 106.9 H fL
(80.0-94.0)
MCH 37.2 H pg
(27.0-31.0)
Sodium 146 H mmol/L
(135-145)
Chloride 115 H mmol/L
(98-107)
Carbon Dioxide 20 L mmol/L
(22-30)
BUN 34 H mg/dl
(9-20)
Glucose 111 H mg/dl
(70-99)
AST 109 H U/L
(17-59)
Alkaline Phosphatase 201 H U/L
(38-126)
10/21/24 00:17
10/21/24 00:17
Vital Signs
Initial and Last Documented VS:
Initial Vital Signs
Temp Pulse Resp BP Pulse Ox
36.3 C 61 18 131/70 98
10/21/24 00:04 10/21/24 00:04 10/21/24 00:04 10/21/24 00:04 10/21/24 00:04
Last Documented Vital Signs
Temp Pulse Resp BP Pulse Ox
36.3 C 56 14 128/65 94
10/21/24 00:04 10/21/24 02:15 10/21/24 02:15 10/21/24 02:00 10/21/24 02:15
MDM/Problems Addressed
Differential Diagnosis Includes:
Valvular issue, dysrhythmia, orthostatic hypotension, dehydration, electrolyte derangement
MDM/Problems Addressed:
79-year-old male presents after syncopal event when standing up from his seat. He does have known history of mitral regurgitation he follows with Dr. Awan for cardiology. Vitals and exam as above. EKG shows sinus bradycardia. Labs were sent
including a CBC and a CMP which showed no clinically significant abnormalities. His troponin is negative. CT head pending. Monitor on telemetry and reassess after the above.
CT head negative for any acute pathology. Patient has been sinus rhythm on monitor throughout ED observation for 3 hours. He feels well on clinical reassessment with stable vital signs. I had a long discussion with patient and . We spoke
about potentially admitting for observation versus discharge with close outpatient cardiology follow-up after this episode. Using shared decision making we will discharge�will refer via chest pain hotline in order to expedite outpatient follow-up
with cardiology. Patient feels comfortable with this. Spoke about return precautions and all questions answered.
Chronic conditions affecting care:
Atrial fibrillation
*Radiology
Radiology exam reviewed: radiology read reviewed
*Pulse Oximetry
Patient hypoxic: no
*EKG
Interpreted by ED Provider?: Yes
Heart Rate: 54
Rate: bradycardiac
Rhythm: sinus
Anita: normal axis
Interval: normal interval
QRS Pattern: normal QRS
Ischemia: no ischemia
*Critical Care Note
Total Time (30-74mins, 75-104mins- exclusive of procedures): Not Applicable
Data Reviewed
Source: patient, records and spouse
Patient Management
Escalation/DeEscalation of care consider admission/obs:
Considered admission�shared decision making discharged with close cardiology follow-up
Update Note
Update Note:
Reviewed echocardiogram from 09/23/2024�showed EF of 65 to 70%, mitral valve prolapse and moderate to severe mitral regurg, mild tricuspid regurg, dilated aortic root.
Reviewed MRI of the lumbar spine from 08/08/2024 which showed abnormal marrow signal intensity which patient is being evaluated for on an outpatient basis. It also showed multilevel degenerative changes, nerve root compression.
ED Attending Note
-
Portions of this chart may have been created with voice recognition software.� Occasional wrong word or��sound alike� substitutions may have occurred due to the inherent limitations of voice recognition software.
Discharge Plan
Departure
Patient Disposition: Home (Routine Discharge)
Date of Disposition: 10/21/24
Time of Disposition: 02:57
Patient with high blood pressure during this ER visit?: No
Discharge Problem:
Syncope and collapse
Instructions: Syncope (Fainting) (DC), Chest Pain CBC Follow Up
Prescriptions:
No Action
ekeaw-3q-gww-epa-fish oil 1 EACH capsule
1 cap PO DAILY
multivitamin with folic acid [Tab-A-Hadley] 1 TABLET tablet
1 tab PO DAILY
calcium carbonate [Oyster Shell Calcium 500] 500 MG tablet
500 mg PO DAILY
furosemide 40 MG tablet
40 mg PO DAILY Qty: 30 0RF
atorvastatin 20 MG tablet
20 mg PO QPM Qty: 30 0RF
diltiazem HCl 240 MG capsule,extended release 24hr
240 mg PO DAILY Qty: 30 0RF
metoprolol succinate 100 MG tablet extended release 24 hr
100 mg PO BID Qty: 60 0RF
digoxin [Digitek] 0.25 MG tablet
0.25 mg PO NOON Qty: 30 0RF
spironolactone 25 MG tablet
25 mg PO DAILY Qty: 30 0RF
apixaban [Eliquis] 5 MG tablet
5 mg PO BID Qty: 60 0RF
Referrals:
Rufus Schofield MD [Family Provider] -
Dave Awan MD [Active] - Follow up in 2-3 days
Activity Restrictions/Additional Instructions:
Thank you for visiting the Emergency Department at [facility].
1. Please schedule a follow up appointment as directed. Call first thing tomorrow morning to make an appointment.
2. If indicated, please take your medications as instructed and indicated on discharge paperwork.
3. If any of your symptoms do not improve, or persist, or become more severe within 6-12 hours, please return to the emergency department for further care.
4. Please return to the emergency department if you develop a headache, neck pain/stiffness, fever greater than 100.4F, chest pain, shortness of breath, persistent nausea, vomiting, slurred speech, difficulty walking, numbness/tingling, weakness,
signs of infection or any other symptoms that are worrisome to you.
Please call [phone] if you have any questions.
Interventions
Interventions:
*Risk Screen - Suicide Last Done: 10/21/24 00:04
*General Assessment Last Done: 10/21/24 00:04
*Neglect/Abuse Screening Last Done: 10/21/24 00:04
*ED- Fall Risk Assessment Last Done: 10/21/24 00:04
ED- Cardiac Assessment Last Done: 10/21/24 00:20
ED- Neurological Assessment Last Done: 10/21/24 00:20
Discharge Date and Time
Print Language: ITALIAN
[2024-10-21 03:00] VITALS: BP 126/68
== END 2024-10-21 03:11 | disposition home or self-care (01) ==
LOC: EMR 23:58
PROVIDERS: Emergency Medicine; EMERGENCY PHYSICIAN Emergency Medicine; FAMILY PHYSICIAN Family Medicine
DX: R55 Syncope and collapse (principal); I10 Essential (primary) hypertension; E78.00 Pure hypercholesterolemia, unspecified; I48.91 Unspecified atrial fibrillation; I34.0 Nonrheumatic mitral (valve) insufficiency; Z79.01 Long term (current) use of anticoagulants; Z87.891 Personal history of nicotine dependence
CPT/HCPCS: 99284; 70450; 80053; 84484; 85025; 93005

== ENCOUNTER → 2024-10-30 07:10 | Outpatient (REF) | payer MEDICARE, OTHER, SELFPAY ==
[2024-10-30 07:32] LABS: % Eosinophils 4.9 % (0-6); % Immature Granulocytes 0.5 % (0-0.5); % Lymphocytes 19.8 % (20.5-51.1); % Monocytes 10.9 % (1.7-9.3); % Neutrophils 62.9 % (42.2-75.2); Absolute Basophils 0.1 10^3/uL (0-0.2); Absolute Eosinophils 0.3 10^3/uL (0-0.7); Absolute Lymphocytes 1.2 10^3/uL (1.2-3.4); Absolute Monocytes 0.7 10^3/uL (0.1-0.6); Absolute Neutrophils 3.9 10^3/uL (1.4-6.5); Hematocrit 34.4 % (39.0-52.0); Hemoglobin 11.7 g/dL (13.0-18.0); Mean Corpuscular Hgb 37.7 pg (27.0-31.0); Mean Platelet Volume 10.6 fL (7.4-10.4); Nucleated Red Blood Cells % 0 % (-); Platelet Count 196 10^3/uL (130-400); White Blood Cell Count 6.2 10^3/uL (4.8-10.8)
[2024-10-30 07:44] VITALS: BP 173/65; BP_SYST 52
[2024-10-30 07:48] LABS: INR 1.12; PT 14.9 Sec (11.4-14.6)
[2024-10-30] MEDS: ATIVAN 0.5 MG IV (08:13)
[2024-10-30] MEDS: NSS (PRESERVATIVE FREE) 0.25 ML IV (08:14)
[2024-10-30 09:40] VITALS: BP 139/73
== END ==
LOC: RADI 07:10
PROVIDERS: ATTENDING PHYSICIAN Internal Medicine Hematology & Oncology; FAMILY PHYSICIAN Family Medicine
DX: D64.9 Anemia, unspecified (principal); D68.8 Other specified coagulation defects
CPT/HCPCS: 88305; 88311; 88312; 36415; 38222; 77012; 85025; 85610; 88313

== ENCOUNTER 2024-11-03 06:29 | Day surgery (SDC) | payer MEDICARE, OTHER, SELFPAY ==
[2024-11-03 06:57] VITALS: BP 172/83
[2024-11-03 07:00] VITALS: BMI 29.0
--- NOTE | 2024-11-03 09:08 | ITS.CL.CATH ---
[facility] - Catheterization
Cardiac Catheterization
Procedure Report:
CARDIAC CATHETERIZATION REPORT
Date of Procedure: 11/03/2024
Referring: Garry Hinton M.D.
Indication: Moderate to severe mitral valve regurgitation, worsening dyspnea on exertion/HFpEF, NYHA class IIa/IIIb.
PROCEDURE:
1. Right heart catheterization.
2. Coronary angiography.
3. Left heart catheterization.
A total of 14 minutes of procedural/moderate sedation was utilized. An independent er medical technician was present to assist with and help manage the patient's level of consciousness and physiologic status.
ACCESS:
1. 6 Amharic 35 cm right common femoral artery using a modified Seldinger technique with a micropuncture kit under ultrasound guidance.
2. 5 Amharic right antecubital vein using a previously placed IV.
3. Failed right radial artery access (unable to pass a wire beyond the proximal radial artery in spite of brisk blood flow).
CATHETERS:
1. 5 Amharic balloon.
2. 5 Amharic JR4.
3. 5 Amharic JL 5.
HEMODYNAMIC DATA
Weight (kg): 86.2
AO (s/d/x, mmHg): 182/81/113
LV (s/x, mmHg): 184/30 (A wave to 49)
PCWP (a/v/x, mmHg): 39/39/30
PA (s/d/x, mmHg): 46/26/33
RV (s/x, mmHg): 46/18
RA (a/v/x, mmHg): 22//19
SVC SvO2 (%): 63.7
IVC SvO2 (%): Not obtained.
RA SvO2 (%): Not obtained.
RV SvO2 (%): Not obtained.
PA SvO2 (%): 68.5
SaO2 (%): 99.9
Hbg (g/dL): 11.2
KELLI
CO (L/min): 4.40
CI (L/min/m2): 2.20
Thermodilution
CO (L/min): Not performed.
CI (L/min/m2): Not performed.
TPG (mmHg): 3
PVR (Callaway Units): 0.68
SVR (dynes*seconds*cm^-5): 1709
AVO2 Diff (Volume %): 4.78
AV gradient (x, mmHg): None.
AV area (cm2): Normal.
MV gradient (x, mmHg): Not obtained.
MV area (cm2): Not obtained.
LEFT VENTRICULOGRAPHY: Not performed.
AORTOGRAPHY: Not performed.
CORONARY ANGIOGRAPHY
Dominance: Right.
Left Main: Normal size, bifurcating vessel. There is no coronary artery disease.
LAD: Normal size vessel giving rise to 2 diagonals before wrapping around the apex. There is no coronary artery disease.
Ramus: Congenitally absent.
Circumflex: Normal size vessel giving rise to 1 large obtuse marginal. This obtuse marginal subsequently bifurcates into 2 daughter branches. There is no coronary artery disease.
RCA: Normal size, dominant vessel with a notable posterolateral arcade. There is no coronary artery disease.
INTERVENTIONS
None.
Closure Device: 6 Amharic Angio-Seal for the right common femoral artery, manual pressure for the right antecubital vein.
Radiation dose (mGy): 422.38
DAP (cm2.Gy): 36.6943
Fluoroscopy time (minutes): 5.1
CONCLUSIONS:
1. Right dominant circulation with no coronary artery disease.
2. Severely elevated filling pressures (LVEDP = 30 mmHg, PCWP = 30 mmHg at 86.2 kg) with evidence of diastolic dysfunction (A wave to 49 mmHg).
3. Mild, postcapillary pulmonary hypertension (mean PA = 33 mmHg, PCWP = 30 mmHg, cardiac output = 4.4 L/min, PVR = 0.68 Callaway units).
4. Moderate to severe mitral valve regurgitation by echocardiography.
RECOMMENDATIONS:
1. Expectant management after cardiac catheterization via right femoral/right antecubital approach.
2. Limited weight bearing for one week.
3. Initiate diuresis with furosemide 40 mg IV now followed by 40 mg p.o. daily. BMP in 1 week.
4. The patient would benefit from GDMT.
5. Assess mitral valve with transesophageal echocardiogram at a date TBD.
6. Decrease metoprolol to 50 mg daily given relative bradycardia.
7. Temporarily defer back surgery/procedure until slightly more compensated. No evidence or need for coronary revascularization.
Copy to: Garry Hinton M.D., Dave Awan M.D., Rufus Schofield M.D.
Ferny Noriega DO, FACC, FACP
[2024-11-03 09:15] VITALS: BP 167/71
[2024-11-03] MEDS: LASIX 40 MG IV (09:21)
[2024-11-03 09:30] VITALS: BP 144/63
[2024-11-03 09:46] VITALS: BP 143/69
[2024-11-03 10:09] VITALS: BP 147/77
[2024-11-03 11:00] VITALS: BP 127/70
== END 2024-11-03 11:58 | disposition home or self-care (01) ==
LOC: CATH 06:29
PROVIDERS: ATTENDING PHYSICIAN Internal Medicine Cardiovascular Disease; FAMILY PHYSICIAN Family Medicine; OTHER PHYSICIAN Internal Medicine Cardiovascular Disease
DX: I50.32 Chronic diastolic (congestive) heart failure (principal); R06.09 Other forms of dyspnea; I34.0 Nonrheumatic mitral (valve) insufficiency; I11.0 Hypertensive heart disease with heart failure; E78.00 Pure hypercholesterolemia, unspecified; Z79.01 Long term (current) use of anticoagulants; I27.29 Other secondary pulmonary hypertension
CPT/HCPCS: 99152; 93460; C1760; C1894; Q9967

== ENCOUNTER 2024-11-04 13:44 | Emergency (ER) | payer MEDICARE, OTHER, SELFPAY ==
[2024-11-04 14:02] VITALS: BP 122/65
--- NOTE | 2024-11-04 16:56 | ED.MUSCINJ ---
HPI-Injury
General
Chief Complaint: Musculo-Skeletal Complaint
Source: patient
Exam Limitations: none
Time Seen by Provider: 11/04/24 16:40
History of Present Illness-Injury
Initial Injury comments:
79-year-old male on Jorje presents with atraumatic pain and swelling to the left wrist. He had a heart catheterization yesterday. The access for the procedure was the right wrist and the femoral artery. There was no intervention to the left
side. He denies chest pain or shortness of breath. The pain does radiate from his wrist up his arm up slightly. No prior history of gout. No fever. No other complaints at this time
Past History
Past History
ED Past Medical History: Arrthythmia, HTN, Hypercholesterolemia and Other (Prostate cancer with surgery, right knee arthritis, hypertension, hyperlipidemia)
Social History
Tobacco: Former smoker
Alcohol: Daily
Drug: None
Living: with family
Family History
Family History: Negative Diabetes, Hypertension or CAD
Phy Exam
Physical Exam
Physical Exam:
General: Well-appearing male no acute respiratory distress
HEENT: Normocephalic atraumatic
Musculoskeletal exam: Left wrist is swollen slightly erythematous hue dorsally tender over the radiocarpal joint. Passive range of motion of the radiocarpal joint reproduces pain.
Vascular: 2+ radial pulse left wrist
Neurologic: Good sensation left hand
Injury Course
Orders/Labs/Results
Orders:
Orders
11/04/24 14:06
ECG [Electrocardiogram (*1)] Urgent
Reason for Study: Other
Other Reason for Exam: L arm pain
EKG- Treatment ONCE
11/04/24 16:55
CR Wrist - Left Min 3 Views Urgent
Comment:
Reason For Exam: pain, swelling
Venous Doppler Upr Ext Left [US Periph Venous UPPER Ext LT] Urgent
Comment:
Reason For Exam: swelling
MDM/Problems Addressed
Differential Diagnosis Includes:
Left wrist pain and swelling. Consider sprain versus fracture versus gout. No fever to suggest infectious source. Patient did not have his left wrist accessed at all during the procedure yesterday. He was off of his Eliquis for couple days prior
to the procedure consider DVT but less likely. Will obtain ultrasound of the left arm as well as x-ray of the left wrist.
*Critical Care Note
Total Time (30-74mins, 75-104mins- exclusive of procedures): Not Applicable
Update Note
Update Note:
X-ray negative for acute finding but there is significant degenerative change throughout the wrist. Ultrasound of left arm negative for DVT. I suspect underlying inflammatory process such as a tendinitis versus gout. No infectious signs. Will
start on prednisone and give splint. Stable for discharge
ED Attending Note
-
Portions of this chart may have been created with voice recognition software.� Occasional wrong word or��sound alike� substitutions may have occurred due to the inherent limitations of voice recognition software.
Discharge Plan
Departure
Patient Disposition: Home (Routine Discharge)
Date of Disposition: 11/04/24
Time of Disposition: 18:48
Patient with high blood pressure during this ER visit?: No
Discharge Problem:
Acute wrist pain
Instructions: Gout, Muscle and Bone Pain (DC)
Prescriptions:
New
prednisone 20 mg tablet
40 mg PO DAILY 5 Days Qty: 10 0RF
No Action
xetpo-1l-wsh-epa-fish oil 1 EACH capsule
1 cap PO DAILY
multivitamin with folic acid [Tab-A-Hadley] 1 TABLET tablet
1 tab PO DAILY
calcium carbonate [Oyster Shell Calcium 500] 500 MG tablet
500 mg PO DAILY
Eliquis 5 MG tablet
5 mg PO BID Qty: 60 0RF
eplerenone 25 mg Tablet
25 mg PO DAILY
atorvastatin 20 MG tablet
20 mg PO DAILY
furosemide [Lasix] 40 mg tablet
40 mg PO DAILY Qty: 30 6RF
metoprolol succinate 100 MG tablet extended release 24 hr
50 mg PO DAILY Qty: 0 0RF
Referrals:
Rufus Schofield MD [Family Provider, Family Practice]
Activity Restrictions/Additional Instructions:
Use splint for support. Take prednisone as directed. Stay hydrated. Turn if worse otherwise follow-up with your
Interventions
Interventions:
*Risk Screen - Suicide Last Done: 11/04/24 14:02
*General Assessment Last Done: 11/04/24 14:02
*Neglect/Abuse Screening Last Done: 11/04/24 14:22
*ED COVID-19 Vaccine History Last Done: 11/04/24 14:22
ED-Musculoskeletal Assessment Last Done: 11/04/24 14:22
Discharge Date and Time
Print Language: CYMRAES
== END 2024-11-04 19:06 | disposition home or self-care (01) ==
LOC: EMR 13:44
PROVIDERS: EMERGENCY PHYSICIAN Emergency Medicine; FAMILY PHYSICIAN Family Medicine
DX: M25.532 Pain in left wrist (principal); M25.432 Effusion, left wrist; M79.602 Pain in left arm; L53.9 Erythematous condition, unspecified; I10 Essential (primary) hypertension; E78.00 Pure hypercholesterolemia, unspecified; M19.90 Unspecified osteoarthritis, unspecified site; Z98.890 Other specified postprocedural states; Z79.01 Long term (current) use of anticoagulants; Z85.46 Personal history of malignant neoplasm of prostate; Z87.891 Personal history of nicotine dependence; Z88.6 Allergy status to analgesic agent; Z88.5 Allergy status to narcotic agent
CPT/HCPCS: 99284; 29125; 73110; 93005; 93971

== ENCOUNTER 2024-11-07 09:23 | Day surgery (SDC) | payer MEDICARE, OTHER, SELFPAY | END 2024-11-07 12:18 | disposition home health service (06) | LOC: CATH 09:23 | PROVIDERS: ATTENDING PHYSICIAN Internal Medicine; FAMILY PHYSICIAN Family Medicine; OTHER PHYSICIAN Internal Medicine Cardiovascular Disease | DX: I34.0 Nonrheumatic mitral (valve) insufficiency (principal); I48.0 Paroxysmal atrial fibrillation; I49.3 Ventricular premature depolarization; I10 Essential (primary) hypertension; E78.00 Pure hypercholesterolemia, unspecified; Z87.891 Personal history of nicotine dependence; Z85.46 Personal history of malignant neoplasm of prostate; Z85.820 Personal history of malignant melanoma of skin; Z79.01 Long term (current) use of anticoagulants | CPT/HCPCS: 93312; 93320; 93325 ==

== ENCOUNTER 2024-11-26 07:21 | Inpatient (IN) | payer MEDICARE, OTHER, SELFPAY ==
[2024-11-14 08:45] VITALS: BMI 29.2
[2024-11-14 09:45] LABS: % Basophils 0.6 % (0-2); % Eosinophils 2.9 % (0-6); % Immature Granulocytes 1.5 % (0-0.5); % Lymphocytes 18.9 % (20.5-51.1); % Monocytes 9.8 % (1.7-9.3); % Neutrophils 66.3 % (42.2-75.2); Absolute Basophils 0.1 10^3/uL (0-0.2); Absolute Eosinophils 0.4 10^3/uL (0-0.7); Absolute Immature Granulocytes 0.2 10^3/uL (0-0.05); Absolute Lymphocytes 2.4 10^3/uL (1.2-3.4); Absolute Monocytes 1.3 10^3/uL (0.1-0.6); Absolute Neutrophils 8.5 10^3/uL (1.4-6.5); Hematocrit 38.9 % (39.0-52.0); Hemoglobin 13.3 g/dL (13.0-18.0); Mean Corp Hgb Conc. 34.2 g/dL (33.0-37.0); Mean Corpuscular Hgb 35.9 pg (27.0-31.0); Mean Corpuscular Volume 105.1 fL (80.0-94.0); Mean Platelet Volume 10.9 fL (7.4-10.4); Nucleated Red Blood Cells % 0 % (-); Platelet Count 303 10^3/uL (130-400); Red Cell Dist. Width 13.6 % (11.5-14.5); White Blood Cell Count 12.8 10^3/uL (4.8-10.8)
[2024-11-14 09:51] LABS: Urine Albumin 1+ (Neg - Trace); Urine Bilirubin Negative (Negative); Urine Character Clear (Clear); Urine Color Yellow; Urine Glucose Negative (Negative); Urine Ketone Negative (Negative); Urine Leukocyte Negative (Negative); Urine Nitrite Negative (Negative); Urine Occult Blood Negative (Negative); Urine Specific Gravity 1.015 (<1.030); Urine Urobilinogen Negative (Neg - 1+)
[2024-11-14 09:53] LABS: PT 16.5 Sec (11.4-14.6)
[2024-11-14 09:54] LABS: APTT 32.2 Sec (23.4-35.0)
[2024-11-14 09:57] LABS: ALT (SGPT) 81 U/L (0-50); AST (SGOT) 45 U/L (17-59); Albumin 4.5 g/dl (3.5-5.0); Alkaline Phosphatase 88 U/L (38-126); Blood Urea Nitrogen 30 mg/dl (9-20); Calcium 10.3 mg/dl (8.4-10.2); Carbon Dioxide 25 mmol/L (22-30); Chloride 108 mmol/L (98-107); Direct Bilirubin 0.3 mg/dl (0.0-0.4); Estimated Creatinine Clearance 64 ml/min; Glucose 97 mg/dl (70-99); Potassium 4.6 mmol/L (3.5-5.1); Sodium 142 mmol/L (135-145); Total Bilirubin 0.7 mg/dl (0.2-1.3); Total Protein 7.5 g/dl (6.3-8.2); eGFR > 60.00
[2024-11-14 10:03] LABS: Urine Amorphous Seen; Urine Squamous Cell 0-2 /LPF (Few); Urine Urothelial Cell 0-2 /LPF (FEW)
[2024-11-14 10:07] LABS: Urine Red Blood Cell 0-2 /HPF (0-2)
[2024-11-14 10:08] LABS: Urine Hyaline Cast 0-2 /LPF (0-2); Urine Mucus Few
[2024-11-14 10:09] LABS: Urine White Cell 0-2 /HPF (0-5)
[2024-11-14 10:11] LABS: Glycohemoglobin (HgbA1c) 5.3 % (4.0-5.6)
--- NOTE | 2024-11-14 11:09 | CM ---
spoke to pt in PAT's, we discussed pre minimally invasive MVR teaching including lifting and driving restrictions. he is prev indep, lives with his in a 2 story home with 2 steps to enter. he has the cardiac surgery book, soap and instructions.
plan is for ct surgery 11/19, cm role explained and all questions answered.
[2024-11-26] VITALS (10 sets, daily range): BP systolic 88–130; BP diastolic 58–77; BMI 29.2; BMI 27.9
[2024-11-26] MEDS: BACTROBAN 2% OINTMENT 1 APPLIC NASAL ×2 (07:50→19:57)
[2024-11-26] MEDS: MAGNESIUM OXIDE 500 MG PO (07:51)
[2024-11-26] MEDS: PROTONIX 40 MG PO (07:51)
[2024-11-26] MEDS: LOPRESSOR 25 MG PO (07:51)
--- NOTE | 2024-11-26 08:50 | PTCARENOTE ---
received the pt pre op into 2267, confirmed shower x2 w provided soap SPORTS MARKETER and NPO since midnight. Interview questions and med rec completed. Pt clipped and prepped w CHG. Plan of care reviewed and questions encouraged.
--- NOTE | 2024-11-26 12:07 | W.CVOR.SURPR ---
CVOR Surgeon Immed Pre Op
-
I have examined this patient prior to performance of the scheduled procedure.
The patient's condition is unchanged from the time of the dictated/written History and
Physical and the patient is able to undergo the scheduled procedure.
Mv repair + MAZE + BRENDA E
[2024-11-26 13:24] LABS: Urine Albumin Negative (Neg - Trace); Urine Bilirubin Negative (Negative); Urine Character Clear (Clear); Urine Color Yellow; Urine Glucose Negative (Negative); Urine Ketone Negative (Negative); Urine Leukocyte Negative (Negative); Urine Nitrite Negative (Negative); Urine Occult Blood 4+ (Negative); Urine Urobilinogen Negative (Neg - 1+)
[2024-11-26 13:45] LABS: ACT+ - POC 126 Seconds (82-134)
[2024-11-26 14:22] LABS: Urine Hyaline Cast 0-2 /LPF (0-2); Urine Squamous Cell 0-2 /LPF (Few)
[2024-11-26 14:23] LABS: Urine Mucus Few; Urine Urothelial Cell 0-2 /LPF (FEW)
[2024-11-26 14:30] LABS: Urine Bacteria Few (Negative); Urine Red Blood Cell 26-30 /HPF (0-2); Urine White Cell 0-2 /HPF (0-5)
[2024-11-26 14:33] LABS: ACT+ - POC 843 Seconds (82-134)
[2024-11-26 15:15] LABS: B.E. - POC -0.8 mmol/L; Glucose - POC 89 mg/dl (70-99); HCO3 - POC 24 mmol/L (21-28); Hematocrit - POC 35 % PCV (42-52); Hemodilution- POC No; Ionized Calcium - POC 1.21 mmol/L (1.15-1.33); Lactate - POC < 0.30 mmol/L (0.36-0.75); O2 Saturation %Calculated-POC 99.9 % (94-98); PCO2 - POC 37 mmHg (35-48); PO2 - POC 263 mmHg (83-108); Potassium - POC 3.4 mmol/L (3.5-5.1); Sodium - POC 139 mmol/L (136-145); Specimen Type - POC Arterial; pH - POC 7.41 (7.35-7.45)
[2024-11-26 15:19] LABS: ACT+ - POC 745 Seconds (82-134)
[2024-11-26 15:56] LABS: ACT+ - POC 509 Seconds (82-134)
--- NOTE | 2024-11-26 16:21 | CM ---
pt in OR today, cm to follow
[2024-11-26 16:27] LABS: ACT+ - POC 625 Seconds (82-134)
[2024-11-26 16:47] LABS: B.E. - POC -1.5 mmol/L; Glucose - POC 158 mg/dl (70-99); HCO3 - POC 23 mmol/L (21-28); Hematocrit - POC 36 % PCV (42-52); Hemodilution- POC Yes; Hemoglobin Calculated - POC 12.3; Ionized Calcium - POC 1.11 mmol/L (1.15-1.33); Lactate - POC 0.86 mmol/L (0.36-0.75); O2 Saturation %Calculated-POC 99.9 % (94-98); PCO2 - POC 39 mmHg (35-48); PO2 - POC 328 mmHg (83-108); Potassium - POC 5.6 mmol/L (3.5-5.1); Sodium - POC 139 mmol/L (136-145); Specimen Type - POC Arterial; pH - POC 7.39 (7.35-7.45)
[2024-11-26 16:52] LABS: ACT+ - POC 134 Seconds (82-134)
--- NOTE | 2024-11-26 17:10 | W.PN.CT.SURG ---
CT Surgery Operative Note
-
CARDIAC SURGERY OPERATIVE REPORT
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
Postoperative Diagnosis: Same
Procedure(s) Performed:
1. Right mini thoracotomy with percutaneous right femoral artery and vein cannulation under ARLETTE guidance
2. Radical mitral valve repair (2 sets of [place]-Juan cords placed to the P2 scallop and a 36 mm band annuloplasty)
3. Placement temporary ventricular pacing wires
4. Trans esophageal echocardiography
5. Left atrial cryo maze and left atrial appendage exclusion
6. Anesthesia performed a serratus block preoperatively
Date of Surgery: 11/26/2024
Comorbidities:
1. Myxomatous mitral valve degeneration with severe insufficiency, symptomatic
2. Paroxysmal atrial fibrillation
3. Hypertension
4. Hyperlipidemia
5. History of prostate cancer
6. History of GI bleeding
7. GERD
8. Pancreatitis
9. Former smoker, quit in 2017
10. Gout
Attending Surgeon: Abdelrahman Flores MD, MS
Assistants: Abdelrahman Fletcher PA-C (present and necessary for retraction, suctioning, exposure, suture management, wound closure, etc. under my direction)
Anesthesiology: Jose R Contreras MD and Izzy Rodríguez CRNA
Scrub and Circulating RNs: Nena Patel RN, Dillon Bazzi RN
Flight Service Specialist: Traci Latham CCP
Anesthesia: GETA
EBL: per perfusion records
Products: none
CPB Time: 116 minutes
Aortic Cross Clamp Time: 95 minutes
Indication(s) for Procedures: This is a 79-year-old male who has a known history of mitral valve insufficiency that is become worsening. He became symptomatic recently and also has a known history of atrial fibrillation. Given his symptomatic MR,
he was referred for consideration of mitral repair as well as maze and left atrial appendage exclusion..
Mitral Valve Description: Thickening of both the anterior and posterior leaflets, dilated annulus asymmetrically mostly towards the P2 P3 region. There was prolapsing of the P2 scallop with a cleft between P2 and P3.
Implants:
1. 36 mm Deluca physio flex annuloplasty band, SN [id number]
2. 2 sets of [place]-Juan CV 4 cords
3. 35mm left atrial appendage clip, serial number [id number]
Ablation:
1. Box lesion to posterior LA wall
2. BRENDA lesion + BRENDA Exclusion
3. Coronary sinus lesion
4. Posterior mitral annular line toward P2/P3
Specimen:
1. None
Findings: His left ventricular ejection fraction preoperatively was 60% with no significant regional wall motion abnormalities. Following surgery his EF remained the same at 60% with no new regional wall motion abnormalities. His mitral valve was
thickened with prolapsing of P2 scallop as well as asymmetrical dilation of the annulus. His valve was repaired using a total of 14 nonpledgeted 2 Ethibond sutures to secure his annulus from trigone to trigone. I also placed [place]-Juan sutures to
the posterior medial papillary muscle head to anchor down the P2 scallop. On dynamic inflation of the left ventricle and pressurization, his coaptation margin was quite anterior and so these cords were used to bring the posterior leaflet more
vertically and to promote a posterior coaptation margin. A full left atrial maze was performed with the lesions listed above, his left atrial appendage was verified to be free of any thrombus or debris preoperatively and found to be totally
occlusive postoperatively with the 35 mm clip. After coming off of cardiopulmonary bypass there was no residual mitral valve deficiency and the mean gradient across the valve was 2 mmHg. There was no UMER and had normal excursion of both leaflets.
He was in sinus rhythm and did not require inotropic support or pacing. No blood products were given. I initially cut down on the left common femoral artery as this had a lower bifurcation however there was some calcification and difficulty with
threading the wire and so this was aborted and I percutaneously accessed his left common femoral vessels and used a preclosed device x 2 for the arterial side.
Description of Procedure: The patient was brought to the operating room and placed supine in the table with their right side bumped up and right arm down. Arterial and central access was performed by anesthesiology. The patient was prepped from chin
to toes in the typical sterile fashion. Trans esophageal evaluation of cardiac function and all valvular structures was conducted. Before commencing, a time out was performed by all members of the team. All were in agreement with the procedure and
laterality and I proceeded. A small left groin incision was made to expose the common femoral artery and pursestrings were placed here. A 5-6 cm right lateral muscle sparing thoracotomy sweeping the pec major muscle cephalad at the seratus anterior
was performed over the 4th intercostal space verified by visualization of the hilum. A total of 45,000 units of heparin was given. I initially attempted to access the left common femoral artery with a micropuncture wire however there was difficulty
with threading the wire and so this was aborted. I then used ultrasound guided Seldinger technique to access the right common femoral vessels with ARLETTE guidance to verify the wire is in the appropriate lumen. 2 preclose devices were placed on the
arterial side for later use and closure. The arterial line was verified to have an appropriate bounce and pressure correlating with testing. Once the ACT was above 400, retrograde autologous priming was done and we commenced cardiopulmonary bypass.
Target core temperature was 34�C.
Carbon dioxide was used to flood the field. The course of the phrenic nerve was identified to prevent injury. The pericardium was opened and two stay sutures were placed to facilitate a ``pericardial table.�� The oblique sinus was developed followed
by the inter atrial groove. An antegrade root vent was inserted and secured with a pursestring suture. The pump flow and mean arterial pressure were lowered and an aortic cross clamp was applied to the ascending aorta. A total of 1.2L initial dose
of Antegrade cardioplegia was delivered. We had rapid electro myocardial quiescence at 250 cc of cardioplegia. The ventricle was monitored for distension by echocardiogram during this time. The left atrium was incised and enlarged. A left atrial
lift retractor was placed. The mitral valve was inspected. At this point cryo maze was performed. The mitral valve was repaired as described above. The left atrial lift was then removed and the left atrial appendage was clipped with a 35 mm device
across the transverse sinus. The left atriotomy was closed with 3-0 prolene in a running fashion leaving a ventricular vent in place to de-air. After filling the heart, the vent was removed and the prolene was secured with a corknot. Unipolar
ventricular pacing wire was placed on the base of the right ventricle. The patient was placed into Trendelenburg position and pump flows were lowered. The clamp was slowly removed with the root vent turned on. De-airing maneuvers were performed. We
started to rewarm with a target of 36.5�C.
As the heart recovered, the mitral valve and ventricular function were assessed under transesophageal echocardiogram. The LV vent and root vents were removed. Once weaning parameters were satisfactory, cardiopulmonary bypass flow was lowered until
we were off cardiopulmonary bypass the mitral valve was inspected again. All surgical sites were inspected for hemostasis and appeared appropriate. We briefly went back on bypass to remove the root vent and the pericardium was approximated with 2-0
ethibond sutures secured with corknots. The lines were clamped and the arterial was relocated to the venous cannula to give back volume. A test dose of protamine was delivered and patient was monitored for any adverse reactions followed by complete
protamine dosing. The aortic cannula was then accessed with a needle and a wire was placed into the descending thoracic aortic lumen. The femoral arterial cannula was then removed over a wire and the preclose devices were cinched down. Once you
are satisfied that there is no potential for protamine reaction, access to the femoral vessels were eliminated and all Perclose's were locked down. One 19F Akin drain remained in the pleural space and threaded into the pericardium. There was an
excellent palpable distal pulse to the MOTORIZED SQUAD COMMANDING OFFICER cannulation site and the prior cut down site. Local analgesia was injected to the thoracotomy. The rib space was approximated with #2 ethibond suture. The incision was closed in layers in a running fashion.
All instrument, sponge, and needle counts were confirmed to be correct x 2 at the end of the operation. The patient was transferred to the cardiac intensive care unit in critical but stable condition.
I, Dr. Abdelrahman Flores, was present, scrubbed for, and performed all critical elements of this procedure.
Abdelrahman Flores MD, MS
Cardiothoracic Surgeon
[facility]
This dictation was created using the Anzu dictation system. Please excuse any grammatical, typographical, or 'sound alike' errors
[2024-11-26 17:31] LABS: B.E. - POC -1.7 mmol/L; Glucose - POC 160 mg/dl (70-99); HCO3 - POC 23 mmol/L (21-28); Hematocrit - POC 31 % PCV (42-52); Hemodilution- POC Yes; Hemoglobin Calculated - POC 10.4; Ionized Calcium - POC 1.27 mmol/L (1.15-1.33); Lactate - POC 1.71 mmol/L (0.36-0.75); O2 Saturation %Calculated-POC 98.4 % (94-98); PCO2 - POC 39 mmHg (35-48); PO2 - POC 114 mmHg (83-108); Potassium - POC 4.7 mmol/L (3.5-5.1); Sodium - POC 140 mmol/L (136-145); Specimen Type - POC Arterial; pH - POC 7.39 (7.35-7.45)
[2024-11-26 17:45] LABS: Glucose - Point of Care 139 mg/dl (70-99)
--- NOTE | 2024-11-26 17:45 | PTCARENOTE ---
Received patient from [facility]OR at 1745. Pt intubated and sedated on precedex gtt. RAAS -5. Unresponsive. PERRLA 2mm sluggish. POX 98% 8.0 ETT 23cm at the lip. SIMV 40% 12 600 5/5. Not breathing over the vent. Lungs clear anteriorly. Left
pleural/mediastinal chest tube to -20cm suction draining red fluid. No air leaks tidaling, crepitus noted. Small amount of clear secretions orally. SR with 1st degree AVB on tele with rates at 60. BP 82/45, levo initiated to maintain BP goal 90-130.
Epicardial v-wire to back up 40/7/2. Thresholds completed. Heart tones audible. Bilateral radial and DP pulses palpable. No edema noted. PA pressures 30s/10s. CVP 7. CI 2.37. Abdomen soft, nontender. Hypoactive BS. Barker catheter intact draining
clear yellow urine. Right lateral chest incision approximated with skin glue. 2 small right lateral chest punctures approximated with skin glue, EDISON. Right groin puncture site with 4x4 and small drainage noted, per Dr. Flores suture intact that needs
to be removed prior to discharge. Left groin incision approximated with skin glue, EDISON. Chest tube dressing CDI. Right IJ cordis with swan floated to 46cm. Left radial grey intact with appropriate waveform. All lines flushed, leveled, zeroed. Right
AC 20g PIV intact. See MAR for medication administration. See worklist for complete nursing assessment. Post op EKG, labs, and CXR completed.
[2024-11-26 17:52] LABS: HCO3 22.7 mmol/L (21-28); Ionized Calcium 1.24 mMOL/L (1.15-1.33); O2 Saturation % 99.7 % (94-98); PCO2 42 mmHg (35-48); PO2 112 mmHg (83-108); Potassium 4.9 mMOL/L (3.5-5.1); Sodium 134 mMOL/L (136-145); pH 7.34 (7.35-7.45)
[2024-11-26 17:53] LABS: Hematocrit 32.9 % (39.0-52.0); Hemoglobin 11.5 g/dL (13.0-18.0); Platelet Count 131 10^3/uL (130-400)
[2024-11-26 18:03] LABS: INR 1.37; PT 17.4 Sec (11.4-14.6)
[2024-11-26 18:04] LABS: APTT 31.8 Sec (23.4-35.0)
[2024-11-26 18:13] LABS: Blood Urea Nitrogen 18 mg/dl (9-20); Estimated Creatinine Clearance 75 ml/min; Glucose 132 mg/dl (70-99); Magnesium 2.5 mg/dl (1.6-2.3)
[2024-11-26] MEDS: NEURONTIN PO ×2 (18:35→19:26)
[2024-11-26] MEDS: NSS 500 IV (18:35)
[2024-11-26] MEDS: ANCEF 10 IV ×2 (18:35)
[2024-11-26] MEDS: NOVOLOG FLEXPEN SC (18:35)
[2024-11-26 18:53] LABS: Glucose - Point of Care 131 mg/dl (70-99)
[2024-11-26] MEDS: SENOKOT-S PO (19:26)
[2024-11-26] MEDS: TYLENOL PO (19:26)
--- NOTE | 2024-11-26 20:00 | PTCARENOTE ---
Assumed care of the patient at 1900. Patient in bed, intubated, sedated, pupils 2R sluggish, no purposeful movement at this time. SB w/ 1st degree AVB on the monitor with intermittent pacing spikes for HR low 40's; CVPA made aware, temporary pacing
V-wire present and connected to pacer box, see worklist for settings. Heart tones audible, no edema appreciated, pulses palpable throughout. 8.0 ETT to 23 at the R lip, SIMV settings 12/40%/600/5/5, lungs audible, breathing vent assisted at this
time; CT to -20 cm wall suction, no air leak, tidaling, or crepitus noted, sanguineous drainage in the chamber. Abd SNT, round, hypoactive BS. Barker in place draining clear yellow urine. All surgical sites stable, CDI. Amador hugger in place on high
setting, awaiting goal temperature. RIJ Cordis with Sav at 46, L radial art line, PIVx1. All applicable lines calibrated and flushed. See nursing worklist for additional intervention details.
[2024-11-26 20:03] LABS: Glucose - Point of Care 101 mg/dl (70-99)
[2024-11-26] MEDS: LR 250 ML IV ×2 (20:10→22:53)
[2024-11-26 21:03] LABS: Glucose - Point of Care 114 mg/dl (70-99)
[2024-11-26 22:02] LABS: Glucose - Point of Care 119 mg/dl (70-99)
[2024-11-26 22:04] LABS: B.E. -2.1 mmol/L; HCO3 22.3 mmol/L (21-28); Ionized Calcium 1.22 mMOL/L (1.15-1.33); O2 Saturation % 99.5 % (94-98); PCO2 36 mmHg (35-48); PO2 166 mmHg (83-108); Potassium 4.6 mMOL/L (3.5-5.1)
[2024-11-26 22:07] LABS: Hematocrit 34.2 % (39.0-52.0); Hemoglobin 12.1 g/dL (13.0-18.0); Mixed Venous O2 Saturation 70.9 %; Platelet Count 150 10^3/uL (130-400)
[2024-11-26] MEDS: ANCEF 5 IV (23:47)
[2024-11-26] MEDS: ASPIRIN 300 MG RECTAL (23:47)
[2024-11-26 23:51] LABS: PCO2 38 mmHg (35-48); PO2 156 mmHg (83-108); pH 7.37 (7.35-7.45)
[2024-11-27] VITALS (28 sets, daily range): BP systolic 71–137; BP diastolic 48–79; PULSE 54; O2SAT 94–97; BMI 28.1
[2024-11-27] LABS: Glucose - Point of Care 144 mg/dl (70-99)
--- NOTE | 2024-11-27 00:09 | PTCARENOTE ---
Patient awake, following commands, attempting to communicate appropriately, answering questions with nodding and shaking of his head. Denies pain. Vitals stable, Levo titrated per protocol for BP support. Await RT to extubate, no other changes in
assessment at this time.
[2024-11-27] MEDS: OFIRMEV 100 IV (00:35)
--- NOTE | 2024-11-27 00:35 | PTCARENOTE ---
Patient extubated to 6LNC without incident, IS teaching and return demonstration conducted. IS to 1250 at this time, somewhat limited due to pain. Patient in NAD resting in bed, SpO2 96-98%.
[2024-11-27 02:01] LABS: Glucose - Point of Care 132 mg/dl (70-99)
[2024-11-27] MEDS: ROXICODONE 5 MG PO ×4 (03:18→23:43)
[2024-11-27 03:30] LABS: Hematocrit 33.7 % (39.0-52.0); Hemoglobin 11.7 g/dL (13.0-18.0); Mean Corp Hgb Conc. 34.7 g/dL (33.0-37.0); Mean Corpuscular Hgb 35.2 pg (27.0-31.0); Mean Corpuscular Volume 101.5 fL (80.0-94.0); Platelet Count 169 10^3/uL (130-400); Red Blood Cell Count 3.32 10^6/uL (4.70-6.10); Red Cell Dist. Width 13.3 % (11.5-14.5); White Blood Cell Count 14.6 10^3/uL (4.8-10.8)
[2024-11-27 03:51] LABS: Blood Urea Nitrogen 22 mg/dl (9-20); Calcium 9.3 mg/dl (8.4-10.2); Carbon Dioxide 22 mmol/L (22-30); Chloride 111 mmol/L (98-107); Estimated Creatinine Clearance 60 ml/min; Glucose 141 mg/dl (70-99); Magnesium 2.2 mg/dl (1.6-2.3); Potassium 4.7 mmol/L (3.5-5.1); Sodium 140 mmol/L (135-145); eGFR > 60.00
--- NOTE | 2024-11-27 04:00 | PTCARENOTE ---
Patient prepared to deline per CVPA. Kristi remains d/t patient remaining on Levo. See worklist for titration details. BP very labile, Levo max 6. LR x2 this shift, see MAR.
[2024-11-27 04:03] LABS: Glucose - Point of Care 146 mg/dl (70-99)
[2024-11-27] MEDS: TORADOL 15 MG IV ×2 (04:42→12:07)
--- NOTE | 2024-11-27 05:00 | PTCARENOTE ---
Sav d/c'ed per order, no issues. Kristi remains, patient in bed d/t labile BPs. Oxycodone and Toradol PRN for pain, see MAR
--- NOTE | 2024-11-27 05:21 | W.PN.CT ---
Today's Communication / Plan
-
-pod #1
-extubated uneventfully @ 12:30 am
-hr 40s-mid 50s overnight, PACs occasionally
-CI 2.68, HAYNES 5.28. Drips Levo 2, Insulin
-CT outputs: R pleur/med 50/65 in 12/24 hrs
-dcd swan
-maintain a-line while Levo
-? maintain Barker for 24 hrs (per pt, has narrow urethra)
-holding BB and Amio d/t bradycardia
-current meds (ASA, Lipitor, iv iron, Neurontin, Protonix)
-encourage IS, OOB
Assessment / Plan
-
- Severe symptomatic MR - s/p R mini thoracotomy with Radical mitral valve repair (2 sets of [place]-Juan cords placed to the P2 scallop and a 36 mm band annuloplasty); Left atrial cryo maze and left atrial appendage exclusion (35 mm clip) by Dr. Flores
on 11/26/24, pod #1
- Intraop ARLETTE: LVEF was 60% pre and postop with no significant regional wma. Left atrial appendage was verified to be free of any thrombus or debris preoperatively and found to be totally occlusive postoperatively with the 35 mm clip. After coming
off of cardiopulmonary bypass, there was no residual mitral valve deficiency and the mean gradient across the valve was 2 mmHg. There was no UMER and had normal excursion of both leaflets.
- Myxomatous mitral valve degeneration with severe insufficiency, symptomatic
- Paroxysmal atrial fibrillation- on Eliquis preop
- Hypertension
- Hyperlipidemia
- History of prostate cancer
- History of GI bleeding
- GERD
- Pancreatitis
- Former smoker, quit in 2016
- Gout
- Acute postop blood loss anemia
- Acute postop atelectasis
- Acute postop hypovolemia with subsequent hypervolemia
Discussed patient care with: Nursing and Care Team
Subjective
-
Date of Service: November 27, 2024
Objective Data
-
Lab Results
11/27/24 03:07
11/27/24 03:07
PT 17.4 Sec (11.4-14.6) H 11/26/24 17:44
INR 1.37 11/26/24 17:44
APTT 31.8 Sec (23.4-35.0) 11/26/24 17:44
Vital Signs
Vital Signs
Temp Pulse Resp BP Pulse Ox
98.2 F 55 16 93/64 98
11/27/24 04:00 11/27/24 05:00 11/27/24 05:00 11/27/24 04:58 11/27/24 05:00
CT Intake/Output/Weight
11/26/24 11/26/24 11/27/24
06:59 18:59 06:59
Intake Total 70.6 / 1124.5 1053.9 / 1124.5
Output Total 90 / 680 590 / 680
Balance -19.4 / 444.5 463.9 / 444.5
SaO2: 98
Physical Exam
-
General: Awake and AOx3
Cardiovascular: Regular rate & rhythm, No Murmurs and No Rub
Respiratory: Decreased Breath Sounds
Sternum: Stable
Incision: Clean, Dry and Intact
Extremities: No Edema (2+ DPs b/l)
Abdomen: soft, nontender, nondistended, + decreased bowel sounds
Data Reviewed
-
Lab Results: Results Reviewed
Medications: Active Meds Reviewed
Chest X-Ray: Report Reviewed and Image Reviewed
ECG: Report Reviewed and Image Reviewed
[2024-11-27] MEDS: TYLENOL 1000 MG PO ×3 (06:17→21:52)
[2024-11-27] MEDS: NOVOLOG FLEXPEN SC ×2 (07:30→11:30)
--- NOTE | 2024-11-27 07:35 | W.PN.ANS.POP ---
Anesthesia Post Operative
- Anesthesia Post Op Note
Vital Signs Stable-See Nursing Note: Yes (Patient on norepinephrine - stable. )
Airway Patent: Yes
Adequate Pain Control: Yes
Change in Mental Status: No
Current Postoperative Nausea & Vomiting: No
Anesthesia Complications: No
General Anesthetic Recall: No
Unplanned Admission: No
Post Op Hydration Adequate: Yes
--- NOTE | 2024-11-27 08:00 | PTCARENOTE ---
pt received from previous RN, oriented, in bed. SB on the monitor, HR 40-50s. V wire in place, VVI 40/7. SBP 90-100s, MAPs >65, Levophed gtt titrated as ordered. palpable pulses. pt on 3LNC, 98% POX. lungs clear. IS encouraged. CTx1, no air leak or
crepitus noted. pt abdomen s/n, denies n/v. tolerating clears. +BS. Barker in place, NUCLEAR SUPERVISING OPERATOR aware of UO. surgical incisions intact. RIJ cordis maintained. PIV. insulin gtt running as ordered. L radial [place] flushed, zeroed, and calibrated. see worklist
for VS, I&O, and assessment.
[2024-11-27 08:06] LABS: Glucose - Point of Care 126 mg/dl (70-99)
[2024-11-27 08:06] LABS: Glucose - Point of Care 127 mg/dl (70-99)
[2024-11-27 08:06] LABS: Glucose - Point of Care 118 mg/dl (70-99)
--- NOTE | 2024-11-27 08:07 | PN.DE.MGMTRT ---
Insulin Management
- -
11/27/2024 Diabetes Management Consult
Patient admitted 11/26 for OR for Mitral valve repair. PMH HTN, prostate CA, HCL, impaired fasting glucose, polyps, pancreatitis, mitral valve regurgitation. Prior to admission no history or medications for diabetes. A1C 5.3%, cr 1, eGFR > 60.
POD 1 s/p mitral valve repair. Patient is awake alert and oriented, able to discuss glucose control.
Currently on critical care glycemic protocol insulin infusion requiring 3 to 3.5 units of insulin per hour. Will continue insulin infusion at this time; CV PA to determine transition.
Discussed with nurse.
Will follow.
Diabetes History
- -
Pre-Admission Diabetes Regimen
11/26/24 11/27/24
17:44 03:07
Creatinine 0.8 1.0
Lab Results
Hemoglobin A1c 5.3 % (4.0-5.6) 11/14/24 08:56
Insulin Pump Settings
IP Diabetes Regimen
11/26/24 11/26/24 11/26/24
17:43 17:44 18:51
Glucose 132 H
POC Glucose 139 H 131 H
11/26/24 11/26/24 11/26/24
20:01 21:01 22:01
Glucose
POC Glucose 101 H 114 H 119 H
11/26/24 11/27/24 11/27/24
23:59 02:00 03:07
Glucose 141 H
POC Glucose 144 H 132 H
11/27/24 11/27/24 11/27/24
04:01 06:07 07:09
Glucose
POC Glucose 146 H 127 H 126 H
11/27/24
07:58
Glucose
POC Glucose 118 H
Patient Education
[2024-11-27 08:08] LABS: B.E. - POC 2.2 mmol/L; Glucose - POC 124 mg/dl (70-99); HCO3 - POC 27 mmol/L (21-28); Hematocrit - POC 32 % PCV (42-52); Hemodilution- POC Yes; Ionized Calcium - POC 1.08 mmol/L (1.15-1.33); Lactate - POC < 0.30 mmol/L (0.36-0.75); PCO2 - POC 42 mmHg (35-48); PO2 - POC 443 mmHg (83-108); Sodium - POC 139 mmol/L (136-145); Specimen Type - POC Arterial; pH - POC 7.42 (7.35-7.45)
[2024-11-27 08:09] LABS: B.E. - POC 0.8 mmol/L; Glucose - POC 158 mg/dl (70-99); HCO3 - POC 28 mmol/L (21-28); Hematocrit - POC 33 % PCV (42-52); Hemodilution- POC Yes; Hemoglobin Calculated - POC 11.1; Ionized Calcium - POC 1.16 mmol/L (1.15-1.33); Lactate - POC < 0.30 mmol/L (0.36-0.75); O2 Saturation %Calculated-POC 99.9 % (94-98); PCO2 - POC 56 mmHg (35-48); PO2 - POC 388 mmHg (83-108); Potassium - POC 5.4 mmol/L (3.5-5.1); Sodium - POC 140 mmol/L (136-145); Specimen Type - POC Arterial; pH - POC 7.31 (7.35-7.45)
--- NOTE | 2024-11-27 08:21 | CON.INTV ---
Addendum entered and electronically signed by Armaan Smith MD 11/28/24 09:24:
Patient downgraded to CVICU-telemetry status on the evening of 11/27/2024. No additional recommendations at this time. T[employer] Care Manager/Pulmonary service will now sign off. Thank you for allowing us to be involved in the care of this patient. Please
reconsult if there are any additional questions/concerns, or if patient's respiratory status deteriorates.
Original Note:
Consultation
Consultation Request
Date/Time Consultation Requested: 11/26/20241653
Date/Time Consultation Performed: 11/27/2024817
Requesting Provider: Renetta Lyons PA-C
Performing Provider: Dr. Smith
Reason for Consultation: MV-repair and left atrial MAZE + ELAA
Medical History
-
Chief Complaint: Elective mitral valve repair + left atrial appendage exclusion
History of Present Illness:
79-year-old male with a past medical history of mitral valve regurgitation, history of GI bleed, hypertension, prostate cancer s/p radical prostatectomy (2012), impaired fasting glucose, GERD, A-fib on Eliquis, sciatica and former tobacco smoker
(64-uruq-izwv history, quit 2016) who presents for elective mitral valve repair. Patient known to the cardiothoracic surgery service, with last visit on 11/13/[address] Flores. Recent ARLETTE on 11/07/2024 showed moderate/severe mitral regurgitation
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 Prior left heart catheterization on 11/03/2024 showed right dominant circulation with no CAD, and severely elevated
filling pressures with LVEDP: 30 mmHg, and PCWP: 30 mmHg with evidence of diastolic dysfunction. His mitral valve was recommended to be repaired and the risks and benefits were discussed and the patient agreed to this procedure. On 11/26/2024,
patient underwent radical mitral valve repair, with left atrial cryo MAZE and left atrial appendage exclusion. There were no complications, and he was transferred to the CVICU postoperatively. T[employer] Care Manager services consulted for additional
management/recommendations.
When I saw the patient today, he was resting in bed in no acute distress. Current BP via NIBP: 102/56, heart rate 54, BP via A-line: 103/56. Currently on insulin drip at 1.8 units/hr as well as Levophed at 1 mcg/min. He is saturating 95% on room
air. Currently denies chest pain, SOB, abdominal pain, nausea, fevers or chills.
PMHx: Mitral valve regurgitation, history of bright red blood per rectum, hypertension, history of prostate cancer s/p radical prostatectomy (2012), IFG, hypercholesterolemia, diverticulosis, GERD, fatty liver disease, history of pancreatitis,
history of duodenal ulcer, A-fib on Eliquis, melanoma on cheek, sciatica, nephrolithiasis, former tobacco smoker (quit 2016), gout (left wrist)
PSHx: Right TKA (01/2018), radical prostatectomy (2012), teeth implants, bridges and partial plate
Past Medical History
Past Medical History: Other (Above as per HPI)
Past Surgical History: Other (Above as per HPI)
Social History
Tobacco: Former Smoker (69-ilxr-snhu history, quit 2016)
Alcohol: None
Drug: None
Personal:
Living: With Family
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
Family History
Family History: Cancer (Father: Prostate cancer; Sister: Lung cancer) and Hypertension (Sister)
Allergies / Home Medications
Allergies
Allergy/AdvReac Type Severity Reaction Status Date / Time
codeine AdvReac shaking Verified 11/13/24 15:26
and tongue
numbness
tramadol AdvReac shaking Verified 11/13/24 15:26
and tongue
numbness
Home Medications
�Medication �Instructions �Recorded �Confirmed �Last Taken �Type
multivitamin with folic acid 400 1 tab PO .OCCASIONALLY Supplement 08/08/18 11/26/24 11/24/24 History
mcg tablet (Tab-A-Hadley)
calcium carbonate (Oyster Shell 500 mg PO DAILY Supplement 03/15/21 11/26/24 11/24/24 22:00 History
Calcium 500)
atorvastatin 20 mg tablet 20 mg PO DAILY High Cholesterol 11/03/24 11/26/24 11/25/24 History
eplerenone 25 mg tablet 25 mg PO DAILY Fluid 11/03/24 11/26/24 11/24/24 History
Retention/Swelling
omega-3 fatty acids-fish oil 684 1 cap PO DAILY Supplement 11/13/24 11/26/24 11/24/24 History
mg-1,200 mg capsule,delayed release
apixaban 5 mg tablet (Eliquis) 5 mg PO BID Blood Clot 11/26/24 11/26/24 11/24/24 History
Prevention/Tx
metoprolol succinate 100 mg 50 mg PO DAILY Heart 11/26/24 11/26/24 11/24/24 History
tablet,extended release 24 hr Disease/Condition
Review of Systems
-
History Source: Patient
All other systems: Negative unless noted
Vitals / Labs / Diagnostic Testing
Vital Signs
Temp Pulse Resp BP Pulse Ox
97.4 F 50 18 103/60 100
11/27/24 08:00 11/27/24 08:00 11/27/24 09:00 11/27/24 08:00 11/27/24 09:00
Lab Data
11/27/24 03:07
11/27/24 03:07
Laboratory Results
11/26/24 11/26/24 11/26/24
17:44 21:55 23:43
PT 17.4 H
INR 1.37
APTT 31.8
pH 7.34 L 7.40 7.37
pCO2 42 36 38
pO2 112 H 166 H 156 H
HCO3 22.7 22.3 22.0
O2 Delivery Level Not Reportable
Diagnostic Testing:
Physical Exam
-
HEENT: Normocephalic and Anicteric
Cardiovascular: S1/S2 and Peripheral Edema (negative)
Respiratory: Wheeze (negative), Rales (negative), Rhonchi (negative) and Non-Labored Respirations
GI: Soft, Non Distended, Non Tender and Normal Bowel Sounds
Neurology: AO x 3 and Tremors (negative)
Skin: Warm and Dry
General: Respiratory Distress (negative), Comfortable, Fever (negative) and Chills (negative)
Assessment
-
Assessment: 79-year-old male with a past medical history of mitral valve regurgitation, history of GI bleed, hypertension, prostate cancer s/p radical prostatectomy (2012), impaired fasting glucose, GERD, A-fib on Eliquis, sciatica and former
tobacco smoker (01-lzaa-msnk history, quit 2017) who presents for elective mitral valve repair. Patient known to the cardiothoracic surgery service, with last visit on 11/13/[address] Flores. Recent ARLETTE on 11/07/2024 showed moderate/severe mitral
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 Prior left heart catheterization on 11/03/2024 showed right dominant circulation with no CAD, and
severely elevated filling pressures with LVEDP: 30 mmHg, and PCWP: 30 mmHg with evidence of diastolic dysfunction. His mitral valve was recommended to be repaired and the risks and benefits were discussed and the patient agreed to this procedure.
On 11/26/2024, patient underwent radical mitral valve repair, with left atrial cryo MAZE and left atrial appendage exclusion. There were no complications, and he was transferred to the CVICU postoperatively. Tire Care Manager services consulted for
additional management/recommendations.
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
pancreatitis, history of duodenal ulcer, A-fib on Eliquis, melanoma on cheek, sciatica, nephrolithiasis, former tobacco smoker (quit 2017), gout (left wrist)
Impression:
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
#Leukocytosis, likely reactive due to above
#Chronic anemia
#Hyperglycemia (mild � HbA1c: 5.3 on 11/14/2024)
#Hypertension
#Hyperlipidemia
#History of prostate cancer
#History of GI bleed
#GERD
#Former tobacco smoker (66-dchc-vomu history, quit 2017)
#Gout
Plan:
Patient was successfully extubated on 11/27/2024 shortly after midnight, and is currently on room air breathing comfortably, saturating 95%
Maintain SpO2 >90-94%
prn nebulized bronchodilators - not currently bronchospastic
Encourage incentive spirometer q1hr while awake
Pulmonary artery catheter parameters will be followed
Pressors/antihypertensive/inotropes/diuretics will be provided as needed
Maintain MAP>65
Replete electrolytes with K>4, Mg>2
Monitor chest tube output
Monitor hemoglobin
Monitor platelet count and coags
Transfuse blood products as needed to maintain Hb>7g/dL, plt>50k (given post-operative status)
CT surgery managing chest tubes
Monitor blood sugar to maintain euglycemia with goal BG 110-140
Insulin drip per protocol
Aspiration precautions
DVT prophylaxis
Early nutrition
Early mobilization
Critical care statement: A total of 41 minutes of critical care time was provided for this patient today. This includes management of ventilator, spontaneous breathing trial, arterial blood gases, pressors, of unstable vital signs, evaluation of the
patient at bedside, reviewing the patient's pertinent medical records including radiographs, microbiology, laboratory evaluations, and discussion with primary team and critical care nursing.
[2024-11-27] MEDS: NEURONTIN 100 MG PO ×3 (08:53→21:52)
[2024-11-27] MEDS: LOW STRENGTH ASPIRIN 81 MG PO (08:53)
[2024-11-27] MEDS: PROTONIX 40 MG PO (08:53)
[2024-11-27] MEDS: LIPITOR 20 MG PO (08:53)
[2024-11-27] MEDS: MAGNESIUM OXIDE 500 MG PO ×2 (08:53→20:55)
[2024-11-27] MEDS: ProAmatine 5 MG PO ×3 (08:53→17:36)
[2024-11-27] MEDS: SENOKOT-S 1 TABLET PO ×2 (08:53→20:55)
[2024-11-27] MEDS: ANCEF 5 IV ×2 (08:54→16:00)
[2024-11-27] MEDS: BACTROBAN 2% OINTMENT 1 APPLIC NASAL ×2 (08:54→20:55)
[2024-11-27] MEDS: LR 250 ML IV ×2 (08:55→09:30)
[2024-11-27 09:13] LABS: Glucose - Point of Care 102 mg/dl (70-99)
--- NOTE | 2024-11-27 09:48 | W.PN.CD ---
Today's Communication / Plan
-
- continue post op tx per CT surgery
- weaning off pressor
- resume Eliquis when safe to restart from apost op standpoint.
Impression / Plan
-
79year old male with h/o MR, PAF, HTN and hyperlipidemia who underwent Mitral valve repair 11/27/24
PMH
Paroxysmal atrial fibrillation
Hypertension
Hyperlipidemia
History of prostate cancer
History of GI bleeding
GERD
Pancreatitis
Gout
Mitral valve repair (2 sets of [place]-Juan cords placed to the P2 scallop and a 36 mm band annuloplasty) via right minithoracotomy, Left atrial cryo maze and left atrial appendage exclusion
- continue post op tx per CT surgery
- post op ECG stable
- wean off pressor as tolerated
- monitor for afib
.
h/o HTN stable- monitor
.
PAF
- in sinus post op
- resume Eliquis when safe to restart from apost op standpoint.
Physical Exam
Vital Signs/Labs
Vital Signs
Temp Pulse Resp BP Pulse Ox
97.4 F 49 18 103/60 100
11/27/24 08:00 11/27/24 09:30 11/27/24 09:30 11/27/24 08:00 11/27/24 09:00
11/26/24 11/27/24 11/28/24
06:59 06:59 06:59
Actual Weight 83.9 kg
11/27/24 03:07
11/27/24 03:07
PT 17.4 Sec (11.4-14.6) H 11/26/24 17:44
INR 1.37 11/26/24 17:44
APTT 31.8 Sec (23.4-35.0) 11/26/24 17:44
Magnesium 2.2 mg/dl (1.6-2.3) 11/27/24 03:07
Physical Exam
Constitutional: No acute distress
Cardiovascular: Rhythm & rate is regular
Respiratory: Wheeze Absent and Rhonchi Absent
GI: Soft
Neuro/Psych: Alert
Data Reviewed
-
Date of Service: November 27, 2024
Medical Decision Making: Reviewed Test Results
X-Ray/CT/US/MRI/NUC/PET: Report Reviewed by me
Medical Tests (PFT, Pathology etc): Report Reviewed by me
Labs: Labs Reviewed by me
[2024-11-27 10:16] LABS: Glucose - Point of Care 112 mg/dl (70-99)
--- NOTE | 2024-11-27 12:00 | PTCARENOTE ---
pt VSS, no changes in assessment. oral hygiene performed. Barker care provided. 500ml LR given per CUFF SETTER, Levophed titrated as ordered. OOB to chair w/ assist, tolerated well. IS encouraged.
[2024-11-27 12:12] LABS: Glucose - Point of Care 100 mg/dl (70-99)
[2024-11-27] MEDS: NOVOLIN R INSULIN INFUSION 100 IV (14:10)
[2024-11-27] MEDS: FERRLECIT 110 MG IV (14:10)
[2024-11-27 14:15] LABS: Glucose - Point of Care 188 mg/dl (70-99)
--- NOTE | 2024-11-27 14:31 | PTCARENOTE ---
pt placed back to bed, CT dc'd as ordered. dressing c/d/i.
[2024-11-27 15:20] LABS: Glucose - Point of Care 161 mg/dl (70-99)
--- NOTE | 2024-11-27 16:38 | PTCARENOTE ---
pt VSS, pt c/o incisional pain, received PRN Roxicodone 5mg PO. Rere Berry dc'henok as ordered, dressing c/d/i.
[2024-11-27] MEDS: NSS IV (16:40)
[2024-11-27] MEDS: NOVOLOG FLEXPEN 4 UNITS SC (16:50)
[2024-11-27 16:53] LABS: Glucose - Point of Care 82 mg/dl (70-99)
[2024-11-27 18:03] LABS: Glucose - Point of Care 167 mg/dl (70-99)
--- NOTE | 2024-11-27 18:40 | PTCARENOTE ---
pt OOB to chair for dinner, insulin gtt dc'd as ordered.
--- NOTE | 2024-11-27 20:00 | PTCARENOTE ---
Resumed care of the patient at 1900. Patient OOB to chair, requested to walk. Ambulated with stand-by assistance 180 ft in the field, tolerated well, helped into bed after activity. AOx3, pleasant, no n/t, DWYER appropriately. SB on the monitor, BP
stable, V wire to pacer box, no pacing spikes noted, no edema, pulses palpable. Lungs dim at the bases on RA, intermittent cough, IS used at regular intervals. Abd round, SNT, normoactive BS, tolerating PO. RIJ Cordis/slic, R forearm RAC PIV INT.
CHG bath performed, VSS, call gibbs within reach, assessment of needs ongoing.
[2024-11-27 21:53] LABS: Glucose - Point of Care 142 mg/dl (70-99)
[2024-11-28] VITALS (12 sets, daily range): BP systolic 98–151; BP diastolic 58–72; PULSE 61; O2SAT 98; BMI 29.1
--- NOTE | 2024-11-28 | PTCARENOTE ---
Patient c/o referred pain/pressure in his mid chest, CVPA talked with patient, Oxycodone x1 for pain, call gibbs within reach.
--- NOTE | 2024-11-28 04:00 | PTCARENOTE ---
Patient sleeping between care, VSS, labs drawn and sent, reports pain well controlled at this time.
[2024-11-28 04:43] LABS: Hematocrit 28.7 % (39.0-52.0); Hemoglobin 9.7 g/dL (13.0-18.0); Mean Corp Hgb Conc. 33.8 g/dL (33.0-37.0); Mean Corpuscular Hgb 35.3 pg (27.0-31.0); Mean Corpuscular Volume 104.4 fL (80.0-94.0); Mean Platelet Volume 11.4 fL (7.4-10.4); Platelet Count 127 10^3/uL (130-400); Red Blood Cell Count 2.75 10^6/uL (4.70-6.10); Red Cell Dist. Width 13.6 % (11.5-14.5); White Blood Cell Count 16.2 10^3/uL (4.8-10.8)
[2024-11-28 05:02] LABS: Blood Urea Nitrogen 33 mg/dl (9-20); Calcium 8.9 mg/dl (8.4-10.2); Carbon Dioxide 23 mmol/L (22-30); Chloride 105 mmol/L (98-107); Estimated Creatinine Clearance 46 ml/min; Glucose 128 mg/dl (70-99); Magnesium 2.5 mg/dl (1.6-2.3); Potassium 4.7 mmol/L (3.5-5.1); Sodium 135 mmol/L (135-145); eGFR 56.58
[2024-11-28] MEDS: TYLENOL 1000 MG PO ×3 (05:48→21:33)
--- NOTE | 2024-11-28 08:00 | PTCARENOTE ---
pt received from previous RN, oriented, OOB in chair. SB w/ prolonged QT on the monitor, HR 50s. V wire in place, VVI 40/7. SBP 100s. palpable pulses. pt on RA, 97% POX. lungs clear. IS encouraged. pt abdomen s/n, denies n/v. tolerating diet. +BS.
Barker in place, clear yellow urine. surgical incisions intact. RIJ cordis maintained. PIV.see worklist for VS, I&O, and assessment.
[2024-11-28] MEDS: SENOKOT-S 1 TABLET PO ×2 (08:28→21:34)
[2024-11-28] MEDS: MAGNESIUM OXIDE 500 MG PO ×2 (08:28→21:33)
[2024-11-28] MEDS: PROTONIX 40 MG PO (08:28)
[2024-11-28] MEDS: LOW STRENGTH ASPIRIN 81 MG PO (08:28)
[2024-11-28] MEDS: LASIX 40 MG IV (08:28)
[2024-11-28] MEDS: NEURONTIN 100 MG PO ×3 (08:28→21:33)
[2024-11-28] MEDS: ProAmatine 5 MG PO ×3 (08:28→17:32)
[2024-11-28] MEDS: LIPITOR 20 MG PO (08:28)
[2024-11-28] MEDS: BACTROBAN 2% OINTMENT 1 APPLIC NASAL ×2 (08:29→21:32)
--- NOTE | 2024-11-28 08:30 | W.PN.CT ---
Today's Communication / Plan
-
-pod #2
-no issues overnight
-small R PTX suspected on CXR 11/27- appears improved
-weaned off O2 - pOx 97% on RA
-no drips
-Barker is in (narrow urethra) - consider d/c
-holding BB and Amio d/t bradycardia
-current meds (ASA, Lipitor, iv iron, Neurontin, Protonix)
-encourage IS, OOB
Assessment / Plan
-
- Severe symptomatic MR - s/p R mini thoracotomy with Radical mitral valve repair (2 sets of [place]-Juan cords placed to the P2 scallop and a 36 mm band annuloplasty); Left atrial cryo maze and left atrial appendage exclusion (35 mm clip) by Dr. Flores
on 11/26/24, pod #2
- Intraop ARLETTE: LVEF was 60% pre and postop with no significant regional wma. Left atrial appendage was verified to be free of any thrombus or debris preoperatively and found to be totally occlusive postoperatively with the 35 mm clip. After coming
off of cardiopulmonary bypass, there was no residual mitral valve deficiency and the mean gradient across the valve was 2 mmHg. There was no UMER and had normal excursion of both leaflets.
- Myxomatous mitral valve degeneration with severe insufficiency, symptomatic
- Paroxysmal atrial fibrillation- on Eliquis preop
- Hypertension
- Hyperlipidemia
- History of prostate cancer
- History of GI bleeding
- GERD
- Pancreatitis
- Former smoker, quit in 2016
- Gout
- Acute postop blood loss anemia
- Acute postop atelectasis
- Acute postop hypovolemia with subsequent hypervolemia
- JAMSHID
- Acute postop small R PTX
Discussed patient care with: Nursing and Care Team
Subjective
-
Date of Service: November 28, 2024
Objective Data
-
Lab Results
11/28/24 04:16
11/28/24 04:16
PT 17.4 Sec (11.4-14.6) H 11/26/24 17:44
INR 1.37 11/26/24 17:44
APTT 31.8 Sec (23.4-35.0) 11/26/24 17:44
Vital Signs
Vital Signs
Temp Pulse Resp BP Pulse Ox
98.5 F 58 18 103/62 97
11/28/24 07:57 11/28/24 08:00 11/28/24 07:57 11/28/24 07:50 11/28/24 07:57
CT Intake/Output/Weight
11/27/24 11/28/24 11/28/24
18:59 06:59 18:59
Intake Total 841.1 / 1441.1 600 / 1441.1
Output Total 380 / 855 475 / 855 60 / 60
Balance 461.1 / 586.1 125 / 586.1 -50 / -50
SaO2: 97
Physical Exam
-
General: Awake and AOx3
Cardiovascular: Regular rate & rhythm, No Murmurs and No Rub
Respiratory: Decreased Breath Sounds
Sternum: Stable
Incision: Clean, Dry and Intact
Abdomen: soft, nontender, nondistended, + decreased bowel sounds
Extremities: No Edema (2+ DPs b/l)
Data Reviewed
-
Lab Results: Results Reviewed
Medications: Active Meds Reviewed
Chest X-Ray: Report Reviewed and Image Reviewed
ECG: Report Reviewed and Image Reviewed
--- NOTE | 2024-11-28 09:30 | PTCARENOTE ---
pt elizabeth care provided, elizabeth dc'd as ordered. pt ambulated in hallway w/ stand by assist. OOB in chair.
--- NOTE | 2024-11-28 11:28 | PTCARENOTE ---
pt VSS, ambulates in hallway, completed stairs w/ CR. pt placed back to bed, V wire cut by MIGUE Wiley. BRITTA Goode dc'd as ordered, dressing c/d/i. OOB in chair for lunch.
[2024-11-28 12:22] LABS: Glucose - Point of Care 133 mg/dl (70-99)
[2024-11-28] MEDS: ROXICODONE 5 MG PO ×3 (12:39→21:34)
[2024-11-28] MEDS: FLEXERIL 5 MG PO ×2 (13:20→21:32)
[2024-11-28] MEDS: FERRLECIT 110 MG IV (13:21)
--- NOTE | 2024-11-28 14:22 | W.PN.CD ---
Today's Communication / Plan
-
tele
resume eliquis when safe post op
Impression / Plan
-
79year old male with h/o MR, PAF, HTN and hyperlipidemia who underwent Mitral valve repair 11/27/24
PMH
Paroxysmal atrial fibrillation
Hypertension
Hyperlipidemia
History of prostate cancer
History of GI bleeding
GERD
Pancreatitis
Gout
# Mitral valve repair (2 sets of [place]-Juan cords placed to the P2 scallop and a 36 mm band annuloplasty) via right minithoracotomy, Left atrial cryo maze and left atrial appendage exclusion
- EKG: sinus mechelle
# HTN
-monitor as he recovers from OR
-stable on metoprolol tartrate 12.5mg bid
# Paroxysmal A fib
- in sinus post op
- resume Eliquis when safe to restart from post op standpoint.
Physical Exam
Vital Signs/Labs
Vital Signs
Temp Pulse Resp BP Pulse Ox
97.9 F 73 20 110/65 98
11/28/24 11:42 11/28/24 13:00 11/28/24 11:42 11/28/24 11:37 11/28/24 11:42
11/27/24 11/28/24 11/29/24
06:59 06:59 06:59
Actual Weight 83.9 kg 86.9 kg
11/28/24 04:16
11/28/24 04:16
PT 17.4 Sec (11.4-14.6) H 11/26/24 17:44
INR 1.37 11/26/24 17:44
APTT 31.8 Sec (23.4-35.0) 11/26/24 17:44
Magnesium 2.5 mg/dl (1.6-2.3) H 11/28/24 04:16
Physical Exam
Constitutional: No acute distress and Comfortable
EENT: Moist mucous membranes
Cardiovascular: Rhythm & rate is regular, Pedal edema is absent, JVD pressure is normal and Systolic murmur absent
Respiratory: Respiratory effort normal and Lungs clear to auscul.
Neuro/Psych: AO x 3
Data Reviewed
-
Date of Service: November 28, 2024
EKG: Other (Tele: SR 60s)
Labs: Labs Reviewed by me
[2024-11-28] MEDS: NSS IV (15:43)
--- NOTE | 2024-11-28 15:47 | PTCARENOTE ---
pt VS completed, ECHO completed. pt c/o feeling R sided chest pain into his shoulder, c/o shakes. MRI TECHNICIAN at bedside. 96% POX on RA, placed on 2LNC for comfort. portable CXR completed. pt OOB to chair.
[2024-11-28 17:29] LABS: Glucose - Point of Care 143 mg/dl (70-99)
--- NOTE | 2024-11-28 20:00 | PTCARENOTE ---
ssumed care of patient @ 1900. recieved pt sitting in chair, Aox3. VSS on RA. SB on tele with 1st degree AVB, long QT, ocasionaly PVCs. Lungs clear on room air. +pp, trace edema. belly soft, normactive. voiding clear yellow urine in urinal. surgical
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 R forearm and R wrist PIV patent. pt resting comfortably with call gibbs within reach .
[2024-11-28] MEDS: TOPROL XL 12.5 MG PO (21:33)
[2024-11-29] VITALS (12 sets, daily range): BP systolic 110–148; BP diastolic 50–75; PULSE 78; O2SAT 96; BMI 29.6
[2024-11-29] MEDS: ROXICODONE 5 MG PO (02:02)
--- NOTE | 2024-11-29 02:20 | PTCARENOTE ---
labs drawn and sent. tahir given for pain. no change in patient assessment .
[2024-11-29 02:49] LABS: Hematocrit 30.1 % (39.0-52.0); Hemoglobin 10.1 g/dL (13.0-18.0); Mean Corp Hgb Conc. 33.6 g/dL (33.0-37.0); Mean Corpuscular Hgb 35.3 pg (27.0-31.0); Mean Corpuscular Volume 105.2 fL (80.0-94.0); Mean Platelet Volume 11.9 fL (7.4-10.4); Platelet Count 127 10^3/uL (130-400); Red Blood Cell Count 2.86 10^6/uL (4.70-6.10); Red Cell Dist. Width 13.8 % (11.5-14.5); White Blood Cell Count 11.7 10^3/uL (4.8-10.8)
[2024-11-29 02:55] LABS: Blood Urea Nitrogen 43 mg/dl (9-20); Calcium 9.1 mg/dl (8.4-10.2); Carbon Dioxide 24 mmol/L (22-30); Chloride 105 mmol/L (98-107); Estimated Creatinine Clearance 50 ml/min; Glucose 124 mg/dl (70-99); Magnesium 2.5 mg/dl (1.6-2.3); Potassium 4.3 mmol/L (3.5-5.1); Sodium 137 mmol/L (135-145); eGFR > 60.00
--- NOTE | 2024-11-29 06:00 | PTCARENOTE ---
pt resting comfortably, no change in assessment .
[2024-11-29] MEDS: TYLENOL PO (07:44)
--- NOTE | 2024-11-29 08:00 | PTCARENOTE ---
resumed care of patient from previous RN. walking rounds completed. resting in bed at time of assessment. AAox3. VSS on RA. SB on tele with 1st degree AVB, prolonged QT. +pulses, trace edema. +bs. appetite fair. BRP. surgical insicions CDI. PIV
patent. will continue to monitor.
[2024-11-29 08:14] LABS: Glucose - Point of Care 103 mg/dl (70-99)
[2024-11-29] MEDS: ProAmatine 5 MG PO ×2 (08:22→13:23)
[2024-11-29] MEDS: MAGNESIUM OXIDE 500 MG PO ×2 (08:23→19:52)
[2024-11-29] MEDS: BACTROBAN 2% OINTMENT 1 APPLIC NASAL ×2 (08:23→19:53)
[2024-11-29] MEDS: LIPITOR 20 MG PO (08:23)
[2024-11-29] MEDS: NEURONTIN 100 MG PO ×2 (08:23→16:03)
[2024-11-29] MEDS: ELIQUIS 5 MG PO ×2 (08:23→19:53)
[2024-11-29] MEDS: TOPROL XL 12.5 MG PO (08:23)
[2024-11-29] MEDS: SENOKOT-S 1 TABLET PO ×2 (08:23→19:53)
[2024-11-29] MEDS: LOW STRENGTH ASPIRIN 81 MG PO (08:23)
[2024-11-29] MEDS: PROTONIX 40 MG PO (08:23)
--- NOTE | 2024-11-29 08:54 | W.PN.CT ---
Addendum entered and electronically signed by Winston Medina MD 11/29/24 09:13:
I saw and examined the patient.
The PA's note was reviewed and I agree with the note.
Comment:
POD#3 s/p HP MVRp, MAZE, ELAA
No issues overnight.� SOB w/ conversations � diuresis today; encourage IS/OOB/ambulation.� Start Eliquis.� D/C tomorrow ?
CXR: clear yesterday
Original Note:
Today's Communication / Plan
-
-pod #3
-no issues overnight
-appears SOB with conversation. Consider diureses
-small R PTX suspected on CXR 11/27- appears resolved
-weaned off O2 - pOx 96% on RA
-Eliquis resumed today for paf
-mechelle postop, hr high 50s-low 60s with occasional PACs, PVCs overnight- resumed BB today (Toprol 12.5 qd)
-current meds (ASA, Toprol, Lipitor, Midodrine 5 tid, Neurontin, Protonix)
-encourage IS, OOB
Assessment / Plan
-
- Severe symptomatic MR - s/p R mini thoracotomy with Radical mitral valve repair (2 sets of [place]-Juan cords placed to the P2 scallop and a 36 mm band annuloplasty); Left atrial cryo maze and left atrial appendage exclusion (35 mm clip) by Dr. Flores
on 11/26/24, pod #3
- Intraop ARLETTE: LVEF was 60% pre and postop with no significant regional wma. Left atrial appendage was verified to be free of any thrombus or debris preoperatively and found to be totally occlusive postoperatively with the 35 mm clip. After coming
off of cardiopulmonary bypass, there was no residual mitral valve deficiency and the mean gradient across the valve was 2 mmHg. There was no UMER and had normal excursion of both leaflets.
- Myxomatous mitral valve degeneration with severe insufficiency, symptomatic
- Paroxysmal atrial fibrillation- on Eliquis preop
- Hypertension
- Hyperlipidemia
- History of prostate cancer
- History of GI bleeding
- GERD
- Pancreatitis
- Former smoker, quit in 2016
- Gout
- Acute postop blood loss anemia
- Acute postop atelectasis
- Acute postop hypovolemia with subsequent hypervolemia
- JAMSHID
- Acute postop small R PTX
Discussed patient care with: Nursing and Care Team
Subjective
-
Date of Service: November 29, 2024
Objective Data
-
Lab Results
11/29/24 02:14
11/29/24 02:14
PT 17.4 Sec (11.4-14.6) H 11/26/24 17:44
INR 1.37 11/26/24 17:44
APTT 31.8 Sec (23.4-35.0) 11/26/24 17:44
Vital Signs
Vital Signs
Temp Pulse Resp BP Pulse Ox
97.5 F 75 12 124/74 96
11/29/24 02:19 11/29/24 08:22 11/29/24 06:00 11/29/24 08:22 11/29/24 06:00
CT Intake/Output/Weight
11/28/24 11/29/24 11/29/24
18:59 06:59 18:59
Intake Total 10 / 490 480 / 490
Output Total 1035 / 1635 600 / 1635
Balance -1025 / -1145 -120 / -1145
SaO2: 96
Physical Exam
-
General: Awake and AOx3
Cardiovascular: Regular rate & rhythm, No Murmurs and No Rub
Respiratory: Rales (bases b/l)
Sternum: Stable
Incision: Clean, Dry and Intact
Extremities: No Edema
Data Reviewed
-
Lab Results: Results Reviewed
Medications: Active Meds Reviewed
Chest X-Ray: Report Reviewed and Image Reviewed
ECG: Report Reviewed and Image Reviewed
[2024-11-29] MEDS: FERRLECIT 110 MG IV (13:22)
[2024-11-29] MEDS: TYLENOL 1000 MG PO ×2 (13:23→19:52)
--- NOTE | 2024-11-29 13:27 | PTCARENOTE ---
found patient on floor with dr. Medina. reported to helping him lower himself to the ground due to light headedness and dizziness. VSS. 96% RA, assistged back into chair and will continue to monitor.
[2024-11-29] MEDS: XANAX 0.25 MG PO (14:20)
--- NOTE | 2024-11-29 14:31 | W.PN.CD ---
Today's Communication / Plan
-
resume Eliquis 5mg bid
trend tele
Impression / Plan
-
79year old male with h/o MR, PAF, HTN and hyperlipidemia who underwent Mitral valve repair 11/27/24
PMH
Paroxysmal atrial fibrillation
Hypertension
Hyperlipidemia
History of prostate cancer
History of GI bleeding
GERD
Pancreatitis
Gout
# Mitral valve repair (2 sets of [place]-Juan cords placed to the P2 scallop and a 36 mm band annuloplasty) via right minithoracotomy, Left atrial cryo maze and left atrial appendage exclusion
- EKG: sinus mechelle
-Tele: sinus
# HTN
-monitor as he recovers from OR
-stable on metoprolol succinate 12.5mg daily
# Paroxysmal A fib
- in sinus post op
- resume Eliquis 5mg bid
Physical Exam
Vital Signs/Labs
Vital Signs
Temp Pulse Resp BP Pulse Ox
97.5 F 81 12 124/74 96
11/29/24 02:19 11/29/24 13:23 11/29/24 06:00 11/29/24 08:22 11/29/24 09:05
11/28/24 11/29/24 11/30/24
06:59 06:59 06:59
Actual Weight 86.9 kg
11/29/24 02:14
11/29/24 02:14
PT 17.4 Sec (11.4-14.6) H 11/26/24 17:44
INR 1.37 11/26/24 17:44
APTT 31.8 Sec (23.4-35.0) 11/26/24 17:44
Magnesium 2.5 mg/dl (1.6-2.3) H 11/29/24 02:14
Physical Exam
Constitutional: No acute distress and Comfortable
EENT: Moist mucous membranes
Cardiovascular: Rhythm & rate is regular, Pedal edema is absent, JVD pressure is normal and Systolic murmur absent
Respiratory: Respiratory effort normal and Lungs clear to auscul.
Neuro/Psych: AO x 3
Data Reviewed
-
Date of Service: November 29, 2024
EKG: Other (Tele: SR 60s)
Labs: Labs Reviewed by me
[2024-11-29] MEDS: NSS IV (15:23)
--- NOTE | 2024-11-29 16:21 | W.PN.UPDATE ---
Update Note
Progress Note Update
The patient is complaining of new blurred vision progressing over the last couple of hours. He tells me he can't read his dinner menu where this morning he was able to read without difficulties. He also had a near syncopal episode this morning and
was helped to the floor. He recovered quickly from this although he states he 'hasn't felt right' since that time.
He has equal strength bilaterally in both upper and lower extremities. No pronator drift. Alert & oriented x 3. No nystagmus. Cranial nerves appear otherwise intact. BP at the time of my evaluation is 132/80, SR in the 60s.
I initiated a stroke alert. He was taken to CT. I notified the precision assembler bench neurologist who stated that he would be evaluated by [facility] due to being after hours on the weekend. Stroke alert CT scans were ordered as instructed.
Further decision making regarding possible CVA per [facility] team.
I notified Drs. Medina and Sandra of the events as well. The patient understands and his questions were answered.
[2024-11-29 17:15] LABS: Glucose - Point of Care 114 mg/dl (70-99)
--- NOTE | 2024-11-29 17:21 | PTCARENOTE ---
stroke alert called on patient after reporting his vision was blurry and he couldnt see anything on the menu. NIHSS done at bedside with floresita CARDENAS. no additional changes. taken to CT.
[2024-11-29] MEDS: ProAmatine PO (17:41)
[2024-11-29] MEDS: LR 500 IV (18:11)
--- NOTE | 2024-11-29 20:00 | PTCARENOTE ---
assumed care of patient @ 1900. received pt laying in bed, AOx3. NIH done with CTPA which was 0. Pt neurologically intact. no complaints of dizziness, lightheadedness, ect. Pt instructed to ring for assistance standing/ambulating, placed on bed
alarm as a precaution. Vitals stable. SB with 1st degree AVB and prolonged QT. Lungs clear, slight wheezes at the bases satting high 90s on room air. No SOB. belly soft, round. voiding gerard urine in urinal. surgical sites CDI. pt resting
comfortably in bed with call gibbs within reach . will follow neuro status through the night .
[2024-11-30] VITALS (10 sets, daily range): BP systolic 86–155; BP diastolic 47–82
--- NOTE | 2024-11-30 00:14 | PTCARENOTE ---
NIH 0, pt resting comfortably w call gibbs within reach .
--- NOTE | 2024-11-30 04:06 | W.PN.CT ---
Addendum entered and electronically signed by Winston Medina MD 11/30/24 09:49:
I saw and examined the patient.
The PA's note was reviewed and I agree with the note.
Comment:
POD#4
Questionable neurologic event yesterday - stroke alert called - imaging negative - greatly appreciate neurology input - D/C'd gabapentin and flexeril
Blurred vision resolved; NIH 0
Continue eliquis
Check 2-view CXR today
D/C planning for hopefully tomorrow
Original Note:
Today's Communication / Plan
-
-pod #4
-got 250cc of LR earlier. Blurred vision resolved. Vision is at baseline and no further neuro sxs. NIH scale is 0. Appreciate neuro input
-Flexeril and Gabapentin were dcd. Will minimize narcotics, avoid hypotension, keep MAP >65
-Eliquis resumed 11/29 for paf
-SOB appears resolved. CXR 11/28- no ptx
-mechelle postop, improved -hr 60s overnight with occasional PACs, PVCs - on Toprol 12.5 qd
-current meds (ASA, Eliquis, Lipitor, Toprol, Midodrine 5 tid, Protonix). Holding Amio
-encourage IS, OOB
Assessment / Plan
-
- Severe symptomatic MR - s/p R mini thoracotomy with Radical mitral valve repair (2 sets of [place]-Juan cords placed to the P2 scallop and a 36 mm band annuloplasty); Left atrial cryo maze and left atrial appendage exclusion (35 mm clip) by Dr. Flores
on 11/26/24, pod #4
- Intraop ARLETTE: LVEF was 60% pre and postop with no significant regional wma. Left atrial appendage was verified to be free of any thrombus or debris preoperatively and found to be totally occlusive postoperatively with the 35 mm clip. After coming
off of cardiopulmonary bypass, there was no residual mitral valve deficiency and the mean gradient across the valve was 2 mmHg. There was no UMER and had normal excursion of both leaflets.
- Myxomatous mitral valve degeneration with severe insufficiency, symptomatic
- Paroxysmal atrial fibrillation- on Eliquis preop
- Hypertension
- Hyperlipidemia
- History of prostate cancer
- History of GI bleeding
- GERD
- Pancreatitis
- Former smoker, quit in 2016
- Gout
- Acute postop blood loss anemia
- Acute postop atelectasis
- Acute postop hypovolemia with subsequent hypervolemia
- JAMSHID
- Acute postop small R PTX- resolved
- Acute postop blurred vision, near-syncope on 11/29- all studies were negative (no bleed, thrombus, occlusion or stenosis)- suspected reaction to meds. Flexeril and Gabapentin dcd. Will minimize narcotics
Discussed patient care with: Nursing and Care Team
Subjective
-
Date of Service: November 30, 2024
Objective Data
-
PT 17.4 Sec (11.4-14.6) H 11/26/24 17:44
INR 1.37 11/26/24 17:44
APTT 31.8 Sec (23.4-35.0) 11/26/24 17:44
Vital Signs
Vital Signs
Temp Pulse Resp BP Pulse Ox
98.2 F 63 18 110/60 98
11/29/24 20:12 11/29/24 20:00 11/30/24 00:13 11/29/24 19:44 11/30/24 00:13
CT Intake/Output/Weight
11/29/24 11/29/24 11/30/24
06:59 18:59 06:59
Intake Total 480 / 490 240 / 1220 980 / 1220
Output Total 600 / 1635 250 / 750 500 / 750
Balance -120 / -1145 -10 / 470 480 / 470
SaO2: 98
Physical Exam
-
General: Awake and AOx3 (No focal neuro deficits)
Cardiovascular: Regular rate & rhythm, No Murmurs and No Rub
Respiratory: Clear and Decreased Breath Sounds
Sternum: Stable
Incision: Clean, Dry and Intact
Extremities: No Edema
Neuro: no focal deficits. NIH scale 0. Vision is back at baseline, no further blurriness, able to read without difficulty. Speech ok. Moves all extremities. Strength 5/5 b/l, sensation intact.
Data Reviewed
-
Lab Results: Results Reviewed
Medications: Active Meds Reviewed
Chest X-Ray: Report Reviewed and Image Reviewed
ECG: Report Reviewed and Image Reviewed
[2024-11-30 04:07] LABS: Mean Corp Hgb Conc. 33.3 g/dL (33.0-37.0); Mean Corpuscular Volume 105.1 fL (80.0-94.0); Mean Platelet Volume 11.4 fL (7.4-10.4); Platelet Count 121 10^3/uL (130-400); Red Blood Cell Count 2.57 10^6/uL (4.70-6.10); Red Cell Dist. Width 13.7 % (11.5-14.5); White Blood Cell Count 7.8 10^3/uL (4.8-10.8)
[2024-11-30 04:39] LABS: Blood Urea Nitrogen 45 mg/dl (9-20); Calcium 8.5 mg/dl (8.4-10.2); Carbon Dioxide 26 mmol/L (22-30); Chloride 106 mmol/L (98-107); Estimated Creatinine Clearance 54 ml/min; Glucose 105 mg/dl (70-99); Potassium 4.3 mmol/L (3.5-5.1); Sodium 137 mmol/L (135-145); eGFR > 60.00
[2024-11-30] MEDS: TYLENOL 1000 MG PO ×3 (06:38→20:44)
--- NOTE | 2024-11-30 07:58 | CON.NEURO ---
Neuro Assessment/Plan
Assessment
Sudden onset visual change with upper extremity myoclonus and confusion
Most likely secondary to toxic metabolic encephalopathy in the form of exposure to gabapentin
Plan
No clear evidence that the patient should have alteration from usual supportive care
No clear indication patient will require MRI of brain
Would not alter patient's usual anticoagulation and antiplatelet agents
Would avoid further exposure to gabapentin if at all possible
Would discontinue patient's cyclobenzaprine to also avoid further potential adverse effect
Will follow as needed
Consultation
Order
Date of Consultation: 11/30/24
Requesting Provider:
Reason for Consult:
Subjective/Objective
Subjective Data
Date of Service: November 30, 2024
Right-handed
Patient had progressive visual difficulty across hours and having myoclonic movements of hands with use. Resolved after several hours. The patient persisted in having the symptoms for several hours. Stroke alert was initiated. The patient had
total resolution and has not had a prior episode. No known modifying factors.
Objective Data
Vital Signs
Temp Pulse Resp BP Pulse Ox
36.9 C 61 16 125/64 97
11/30/24 04:00 11/30/24 05:00 11/30/24 04:00 11/30/24 04:00 11/30/24 04:00
Lab Results
11/30/24 03:58
11/30/24 03:58
PT 17.4 Sec (11.4-14.6) H 11/26/24 17:44
INR 1.37 11/26/24 17:44
APTT 31.8 Sec (23.4-35.0) 11/26/24 17:44
Sodium 137 mmol/L (135-145) 11/30/24 03:58
Potassium 4.3 mmol/L (3.5-5.1) 11/30/24 03:58
BUN 45 mg/dl (9-20) H 11/30/24 03:58
Glucose 105 mg/dl (70-99) H 11/30/24 03:58
Calcium 8.5 mg/dl (8.4-10.2) 11/30/24 03:58
Patient Allergies
codeine Adverse Reaction (Verified 11/13/24 15:26)
shaking and tongue numbness
tramadol Adverse Reaction (Verified 11/13/24 15:26)
shaking and tongue numbness
CVA Assessment
Onset of Stroke Symptoms
Onset of symptoms known: Yes
Date of onset of symptoms: 11/29/24
Time of onset of symptoms: 16:00
Time pt last seen normal is known: Yes
Date last time pt seen normal: 11/29/24
Time last time pt seen normal: 14:00
NIH Stroke Score
Level of Consciousness: 0 - Alert
LOC Questions: 1-Answers one correctly
LOC Commands: 0-Performs both correctly
Best Horizontal Gaze: 0-Normal
Visual Agosto: 0=Normal, no visual loss
Facial Palsy: 0=Normal, symmetrical
Motor - Right Arm: 0=No drift 10 seconds
Motor - Left Arm: 0=No drift 10 seconds
Motor - Right Le-No drift 5 seconds
Motor - Left Le-No drift 5 seconds
Limb Ataxia: 0-Absent
Sensation: 0-Normal
Best Language: 0-No aphasia
Dysarthria: 0-Normal
Extinction and Inattention: 0-No abnormality
NIH Total Score:: 1
Tenecteplase Contraindications
Inclusion and Exclusion criteria reviewed: Yes
IAT Contraindications: NIHSS < 6
Review of Systems
-
History Source: Patient
All other systems: Reviewed and negative
EENT: Negative Blurry Vision or Swallowing Difficulty
Respiratory: Negative Trouble Breathing
Cardiac: Negative Chest Pain
Abdomen/GI: Negative Incontinence of Stool
Genitourinary: Negative Incontinence
Musculoskeletal: Negative Back Pain or Neck Pain
Neuro: Negative Dizzy or Headache
Physical Exam
-
General: No Apparent Distress and Appears Stated Age
Eyes: OU Absent Papilledema, Round OU, Gerrard Conjunctivae and No Ptosis
HEENT: Anicteric and Moist Mucous Membranes
Neck: Full Range of Motion
Respiratory: No Dyspnea
Cardiac: No JVD
GI: Non-distended
Skin: Unremarkable
Extremities: No Clubbing, No Cyanosis and No Edema
Psych: Intact Judgement/Insight
Extended Neurological Exam
Mood & Affect: Mood Unremarkable and Affect Unremarkable
Attention Span & Concentration: Awake, Alert, Interactive and No Difficulty with 2 Step Request
Memory: Reduced (For current month. The patient reported that the month was December instead of November)
Tremor: Hand Tremor Absent and Head Tremor Absent
Speech: Quality Unremarkable and Quantity Unremarkable
Cranial Nerve II: Left Eye: Pupillary Reactivity Unremarkable, Pupillary Size Unremarkable and Visual Agosto Intact
Cranial Nerve II: Right Eye: Pupillary Reactivity Unremarkable, Pupillary Size Unremarkable and Visual Agosto Intact
Cranial Nerves III, IV, : Extraocular Movement: Extraocular Movement Full in all Directions
Cranial Nerve VII: Facial Symmetry: Normal Facial Symmetry
Cranial Nerve VIII: Hearing: Unremarkable Hearing to Normal Conversational Volume
Cranial Nerves IX, X: Palate Movement: Palate Elevation Symmetric
Cranial Nerve XI: Shoulder Shrug: Unremarkable
Cranial Nerve XII: Tongue Protusion: Midline
Muscle Strength, Overall: Full Throughout
Muscle Bulk & Tone: Bulk Unremarkable and Tone Unremarkable
Pronator Drift: No Drift in Upper Extremities
Deep Tendon Reflexes: Trace Throughout
Touch Sensation: Unremarkable
Coordination: Bmysse-jymn-ymyphd Testing Unremarkable
Babinski Sign: Absent Bilaterally
Gait & Station: Negative Wide Based
Data Reviewed
-
CT-A: Report Reviewed
CT-Perfusion: Image Reviewed
CT Head: Report Reviewed
Labs: Report Reviewed
Lipid Profile: Ordered
Reviewed with: Nurse, Physician Web Consultant and Patient
Old Records: Summarized
Medications
-
Active Medications
Generic Name Dose Route Start Last Admin
Trade Name Freq PRN Reason Stop Dose Admin
Acetaminophen 650 mg 11/26/24 16:54
Acetaminophen 325 Mg Tablet PO 12/24/24 16:53
Q4HPRN PRN
mild pain,headache,temp >101F
Acetaminophen 1,000 mg 11/26/24 22:00 11/30/24 06:38
Acetaminophen 500 Mg Tablet PO 12/24/24 21:59 1,000 mg
TID@0600,1400,2200 AHSAN Administration
Amiodarone HCl 200 mg 11/26/24 16:54 11/26/24 19:26
Amiodarone 200 Mg Tablet PO 12/24/24 16:53 Not Given
On Hold: 11/26/24 19:53 TID AHSAN
Comment: mechelle
Apixaban 5 mg 11/29/24 08:00 11/29/24 19:53
Apixaban (Eliquis) 5 Mg Tablet PO 12/27/24 07:59 5 mg
BID AHSAN Administration
Aspirin 81 mg 11/27/24 08:00 11/29/24 08:23
Aspirin 81 Mg Chewable Tablet PO 12/25/24 07:59 81 mg
DAILY AHSAN Administration
Atorvastatin Calcium 20 mg 11/27/24 08:00 11/29/24 08:23
Atorvastatin (Lipitor) 20 Mg Tablet PO 12/25/24 07:59 20 mg
DAILY AHSAN Administration
Bisacodyl 10 mg 11/26/24 16:54
Bisacodyl 10 Mg Rectal Suppository RECTAL 12/24/24 16:53
DAILYPRN PRN
constipation
Sodium Chloride 500 mls @ 10 mls/hr 11/26/24 16:54 11/29/24 15:23
Nss IV 12/24/24 14:23 Not Given
CORDIS AHSAN
Magnesium Hydroxide 30 ml 11/26/24 16:54
Milk Of Magnesia 30 Ml Cup PO 12/24/24 16:53
BIDPRN PRN
if no BM in three days
Magnesium Oxide 500 mg 11/27/24 08:00 11/29/24 19:52
Magnesium Oxide 500 Mg Tablet PO 12/25/24 07:59 500 mg
On Hold: 11/30/24 05:03 BID AHSAN Administration
Metoprolol Succinate 12.5 mg 11/29/24 08:00 11/29/24 08:23
Metoprolol 12.5 Mg Extended Release Dose (1/2 Of 25 Mg Xl Tablet) PO 12/27/24 07:59 12.5 mg
DAILY AHSAN Administration
Midodrine 5 mg 11/27/24 13:00 11/29/24 17:41
Midodrine 5 Mg Tablet PO 12/25/24 12:59 Not Given
TID@0800,1300,1800 AHSAN
Mupirocin 0 applic 11/26/24 20:00 11/29/24 19:53
Mupirocin 2% (Ointment) 22 Gram Tube NASAL 11/30/24 08:01 1 applic
Q12 AHSAN Administration
Ondansetron HCl 4 mg 11/26/24 16:54
Ondansetron 4 Mg/2 Ml Vial IV 12/24/24 16:53
Q8HPRN PRN
nausea/vomiting
Oxycodone HCl 5 mg 11/26/24 16:54 11/29/24 02:02
Oxycodone 5 Mg Regular Release Tablet PO 12/10/24 16:53 5 mg
Q4HPRN PRN Administration
severe pain
Oxycodone HCl 2.5 mg 11/29/24 20:26
Oxycodone 5 Mg Regular Release Tablet PO 12/13/24 20:25
Q4HPRN PRN
moderate pain
Pantoprazole Sodium 40 mg 11/27/24 08:00 11/29/24 08:23
Pantoprazole 40 Mg Delayed Release Tablet PO 12/25/24 07:59 40 mg
DAILY AHSAN Administration
Senna/Docusate Sodium 1 tablet 11/26/24 20:00 11/29/24 19:53
Docusate W/Senna (Estelle-Colace) Tablet PO 12/24/24 19:59 1 tablet
Q12 AHSAN Administration
Sodium Chloride 0 flush 11/26/24 18:00
Sodium Chloride 0.9% (Flush) Syringe IV 12/24/24 17:59
PER PROTOCOL AHSAN
Home Medications
�Medication �Instructions �Recorded
multivitamin with folic acid 400 1 tab PO .OCCASIONALLY Supplement 08/08/18
mcg tablet (Tab-A-Hadley)
calcium carbonate (Oyster Shell 500 mg PO DAILY Supplement 03/15/21
Calcium 500)
atorvastatin 20 mg tablet 20 mg PO DAILY High Cholesterol 11/03/24
eplerenone 25 mg tablet 25 mg PO DAILY Fluid 11/03/24
Retention/Swelling
omega-3 fatty acids-fish oil 684 1 cap PO DAILY Supplement 11/13/24
mg-1,200 mg capsule,delayed release
apixaban 5 mg tablet (Eliquis) 5 mg PO BID Blood Clot 11/26/24
Prevention/Tx
metoprolol succinate 100 mg 50 mg PO DAILY Heart 11/26/24
tablet,extended release 24 hr Disease/Condition
Past History
Past History
ED Past Medical History: Arrthythmia, Cancer (Prostate, melanoma of the cheek), HTN, Hypercholesterolemia, Other (Nephrolithiasis, urinary frequency, gout) and Other (right knee arthritis, detached retina, DJD, bright red blood per rectum,
pancreatitis, fatty liver, duodenal ulcer)
ED Past Surgical History: Cardiac (Cardioversion), Orthopedic (Right TKR 2017), Urological (Radical prostatectomy) and Other (Lumbosacral epidural steroids)
Social History
Tobacco: Former smoker
Alcohol: Daily
Drug: None
Living: with family
Family History
Family History: Negative Diabetes, Hypertension or CAD
--- NOTE | 2024-11-30 08:00 | PTCARENOTE ---
resumed care of patient from previous RN. walking rounds completed. oob in chair at time of assessment. AAox3. VSS on RA. SB/SR on tele with prolonged QT. +pulses. +bs. BRP. surgical insicions CDI. PIV patent. will continue to monitor.
[2024-11-30] MEDS: TOPROL XL 12.5 MG PO (08:32)
[2024-11-30] MEDS: ELIQUIS 5 MG PO ×2 (08:33→20:44)
[2024-11-30] MEDS: ProAmatine 5 MG PO (08:33)
[2024-11-30] MEDS: LOW STRENGTH ASPIRIN 81 MG PO (08:33)
[2024-11-30] MEDS: LIPITOR 20 MG PO (08:33)
[2024-11-30] MEDS: SENOKOT-S 1 TABLET PO ×2 (08:33→20:44)
[2024-11-30] MEDS: PROTONIX 40 MG PO (08:33)
[2024-11-30] MEDS: BACTROBAN 2% OINTMENT 1 APPLIC NASAL (08:35)
--- NOTE | 2024-11-30 13:10 | W.PN.CD ---
Today's Communication / Plan
-
continue eliquis
trend tele
PT/OT
Impression / Plan
-
79year old male with h/o MR, PAF, HTN and hyperlipidemia who underwent Mitral valve repair 11/27/24
PMH
Paroxysmal atrial fibrillation
Hypertension
Hyperlipidemia
History of prostate cancer
History of GI bleeding
GERD
Pancreatitis
Gout
# Mitral valve repair (2 sets of [place]-Juan cords placed to the P2 scallop and a 36 mm band annuloplasty) via right minithoracotomy, Left atrial cryo maze and left atrial appendage exclusion
- EKG: sinus mechelle
-Tele: sinus
# HTN
-monitor as he recovers from OR
-stable on metoprolol succinate 12.5mg daily
# Paroxysmal A fib
- in sinus post op
- resumed Eliquis 5mg bid
#Weakness, low BP
-will get PT/OT eval in AM
-midodrine started by primary team
Physical Exam
Vital Signs/Labs
Vital Signs
Temp Pulse Resp BP Pulse Ox
98.4 F 65 16 113/62 97
11/30/24 04:00 11/30/24 08:00 11/30/24 04:00 11/30/24 08:32 11/30/24 04:00
11/29/24 11/30/24 12/01/24
06:59 06:59 06:59
Actual Weight 88.2 kg
11/30/24 03:58
11/30/24 03:58
PT 17.4 Sec (11.4-14.6) H 11/26/24 17:44
INR 1.37 11/26/24 17:44
APTT 31.8 Sec (23.4-35.0) 11/26/24 17:44
Magnesium 3.0 mg/dl (1.6-2.3) H 11/30/24 03:58
Physical Exam
Constitutional: No acute distress and Comfortable
EENT: Moist mucous membranes
Cardiovascular: Rhythm & rate is regular, Pedal edema is absent, JVD pressure is normal and Systolic murmur absent
Respiratory: Respiratory effort normal and Lungs clear to auscul.
Neuro/Psych: AO x 3
Data Reviewed
-
Date of Service: November 30, 2024
EKG: Other (Tele: SR/SB 50s-60s)
Labs: Labs Reviewed by me
[2024-11-30] MEDS: ProAmatine PO ×2 (14:58→18:03)
--- NOTE | 2024-11-30 16:00 | PTCARENOTE ---
walk x2 around ivu and cvicu without issue. mjuch more steady today and only slight SOB
[2024-11-30 16:06] LABS: HDL Cholesterol 31 mg/dl; LDL Cholesterol, Calculated 46 mg/dl; Total Cholesterol 94 mg/dl (50-199); Triglyceride 87 mg/dl (10-149); Very Low Density Lipoprotein 17 mg/dl (0-30)
[2024-11-30] MEDS: NSS IV (16:59)
--- NOTE | 2024-11-30 20:00 | PTCARENOTE ---
rec`d pt at 1900 AAOx3. afebrile. sr on monitor. RA. clear lung sounds. uses toilet as needed. rt groin puncture with suture, left groin puncture. all sites c/d/i. PIVS flushed and patent. call gibbs in reach, safe environment maintained.
--- NOTE | 2024-12-01 00:27 | W.PN.CT ---
Today's Communication / Plan
-
Vision changes = D/C gabapentin and Flexeril�
Continue Eliquis, ASA, Eliquis, Lipitor, Toprol, Midodrine 5 tid, Protonix, amio ( On hold�
DC planning�
Assessment / Plan
-
- Severe symptomatic MR - s/p R mini thoracotomy with Radical mitral valve repair (2 sets of [place]-Juan cords placed to the P2 scallop and a 36 mm band annuloplasty); Left atrial cryo maze and left atrial appendage exclusion (35 mm clip) by Dr. Flores
on 11/26/24, pod #5
- Intraop ARLETTE: LVEF was 60% pre and postop with no significant regional wma. Left atrial appendage was verified to be free of any thrombus or debris preoperatively and found to be totally occlusive postoperatively with the 35 mm clip. After coming
off of cardiopulmonary bypass, there was no residual mitral valve deficiency and the mean gradient across the valve was 2 mmHg. There was no UMER and had normal excursion of both leaflets.
- Myxomatous mitral valve degeneration with severe insufficiency, symptomatic
- Paroxysmal atrial fibrillation- on Eliquis preop
- Hypertension
- Hyperlipidemia
- History of prostate cancer
- History of GI bleeding
- GERD
- Pancreatitis
- Former smoker, quit in 2016
- Gout
- Acute postop blood loss anemia
- Acute postop atelectasis
- Acute postop hypovolemia with subsequent hypervolemia
- JAMSHID
- Acute postop small R PTX- resolved
- Acute postop blurred vision, near-syncope on 11/29- all studies were negative (no bleed, thrombus, occlusion or stenosis)- suspected reaction to meds. Flexeril and Gabapentin dcd. Will minimize narcotics
Subjective
-
Date of Service: December 01, 2024
Objective Data
-
Lab Results
11/30/24 03:58
11/30/24 03:58
PT 17.4 Sec (11.4-14.6) H 11/26/24 17:44
INR 1.37 11/26/24 17:44
APTT 31.8 Sec (23.4-35.0) 11/26/24 17:44
Vital Signs
Vital Signs
Temp Pulse Resp BP Pulse Ox
98.1 F 64 18 117/74 96
11/30/24 16:00 11/30/24 21:00 11/30/24 16:00 11/30/24 20:44 11/30/24 20:00
CT Intake/Output/Weight
11/30/24 11/30/24 12/01/24
06:59 18:59 06:59
Intake Total 980 / 1220 240 / 240
Output Total 500 / 750 200 / 200
Balance 480 / 470 40 / 40
SaO2: 96
Physical Exam
-
General: Awake
Cardiovascular: Regular rate & rhythm
Respiratory: Clear and Equal
Sternum: Stable
Incision: Clean, Dry and Intact
Extremities: No Edema
[2024-12-01] MEDS: TYLENOL 1000 MG PO (04:51)
[2024-12-01 04:54] VITALS: BP 128/50
--- NOTE | 2024-12-01 05:55 | PTCARENOTE ---
pt reassessed. no changes in pt assessment. call gibbs in reach.
[2024-12-01 06:00] VITALS: BMI 29.7
[2024-12-01 07:33] VITALS: BP 135/66
[2024-12-01] MEDS: LOW STRENGTH ASPIRIN 81 MG PO (08:21)
[2024-12-01] MEDS: TOPROL XL 12.5 MG PO (08:21)
[2024-12-01] MEDS: LIPITOR 20 MG PO (08:22)
[2024-12-01] MEDS: ELIQUIS 5 MG PO (08:22)
[2024-12-01] MEDS: PROTONIX 40 MG PO (08:22)
[2024-12-01] MEDS: SENOKOT-S PO (08:22)
--- NOTE | 2024-12-01 08:23 | W.DCSUMMARY ---
Discharge Summary
Discharge Data
Date of Admission: 11/26/24
Date of Discharge: 12/01/24
-
Pending Results: No
Hospital Course
Primary care physician: Rufus Pool
Outpatient earthmoving labourer: Dave Awan
Inpatient consultants: [facility] Cardiology, pulmonary basic sciences dean, neurology
Procedures:
1. mitral valve repair, MAZE, left atrial appendage clip
Primary Diagnosis:
1. Nonrheumatic myxomatous mitral regurgitation
Secondary Diagnoses:
1. Paroxysmal atrial fibrillation
2. Hypertension
3. Hyperlipidemia
4. History of prostate cancer
5. History of GI bleeding
6. GERD
7. Pancreatitis
8. Former smoker, quit in 2016
9. Gout
10. Acute postop blood loss anemia
11. Acute postop hypovolemia with subsequent hypervolemia
12. JAMSHID (max creat 1.3 from 0.9)
13. Acute postop small R PTX- resolved
14. Acute postop blurred vision, near-syncope on 11/29
HPI: 79-year-old male was electively admitted on 11/26/2024 for mitral valve repair due to nonrheumatic, myxomatous mitral regurgitation with exertion shortness of breath and fatigue
Hospital course: Patient was brought to the operating room and underwent a Heartport mitral valve repair #36 mm band annuloplasty, 2 sets of [place]-Juan cords, left atrial cryo maze and left atrial appendage exclusion by Dr. Abdelrahman Flores. For further
details please see operative note. Patient received no intraoperative blood products and returned to the CVICU on Levophed, Precedex, and insulin. Patient was extubated at 1230 on the day of surgery. On postoperative day #1, midodrine was added
in an effort to wean Levophed off. Patient was sinus bradycardic and beta-marcos and amiodarone were held. On postoperative day #2, wires were clipped, right IJ, Barker, and chest tube were removed. Patient was diuresed with 40 mg of IV Lasix and
diuresed over 1 L of urine. Repeat TTE reported an EF of 55% there was no MR and MV mean gradient was 3 mmHg. Low-dose beta-marcos was resumed. On postoperative day #3, patient had blurred vision and a near syncopal event. A stroke alert was
initiated. CT of the head was negative. Neurology reviewed scans and felt episode was medication related. Gabapentin and Flexeril were discontinued. On postoperative day 4, his neurological exam was intact and neurology signed off. Eliquis was
continued for history of paroxysmal atrial fibrillation. Patient ambulated in halls without difficulty. Hemoglobin was 9.0, Platelet count 121K, potassium 4.3 and creatinine 1.1. Patient will be followed by transitional nurse team and have CBC
and BMP in 1 week. Blood pressure remained stable and midodrine was discontinued. Patient remained in sinus rhythm in the 60s to 70s. Toprol was continued at 12.5 mg daily as midodrine just discontinued. No amiodarone was ordered on discharge as
patient had no episodes of atrial fibrillation while hospitalized.
Home medication changes:
Toprol decreased to 12.5mg daily
Discharge Plan
-
Patient Disposition: Home (Routine Discharge)
Discharge Diagnosis/Procedures: Heart port mitral repair, MAZE, left atrial appendage clip (11/26)
Condition: Good
Diet: Low Cholesterol and Low Sodium
Activity: No strenuous activity
Driving Restrictions: No driving for 2 weeks
Bathing Restrictions: OK to Shower
Blood Work: CBC & BMP in 1 week
Other Services: Cardiac Rehab
Specialty Instructions: Weigh Daily- Call MD for wt gain/loss 3 lbs overnight/5 lbs in 1 week
Referrals:
CT Transitional Care Nurse [Outside] - in one to two days
Referral Note:
The Cardiothoracic Transitional Care Nurse will call you to set up a visit in 1-2 days[address]
[facility]. Cardiac Rehab [Outside] - 12/31/24 1:00 pm
Referral Note: Cardiac Rehab Orientation appointment is on December 31 at 1pm.
The Cardiac Rehab gym is located on the first floor of the [facility].
Rufus Schofield MD [Family Provider, Family Practice] - in four to six weeks
Referral Note: Please make an apppointment in four to six weeks.
Keisha Mccullough CRNP [Specified Professional Personl, Cardiology] - 01/08/25 10:00 am
Abdelrahman Flores MD [Active, Cardiac Surgery] - 12/22/24 1:00 pm
Prescriptions:
New
pantoprazole 40 mg Tablet,Delayed Release (Dr/Ec)
40 mg PO DAILY Qty: 30 2RF
acetaminophen 325 mg Tablet
650 mg PO Q4HPRN PRN (Reason: mild pain,headache,temp >101F ) Qty: 0 0RF
metoprolol succinate 25 mg Tablet Extended Release 24 Hr
12.5 mg PO DAILY Qty: 30 2RF
oxycodone 5 mg Tablet
2.5 mg PO Q4HPRN PRN (Reason: severe pain) Qty: 10 0RF
Continued
multivitamin with folic acid [Tab-A-Hadley] 1 TABLET tablet
1 tab PO .OCCASIONALLY
calcium carbonate [Oyster Shell Calcium 500] 500 MG tablet
500 mg PO DAILY
eplerenone 25 mg Tablet
25 mg PO DAILY
atorvastatin 20 MG tablet
20 mg PO DAILY
omega-3 fatty acids-fish oil 684-1,200 mg Capsule,Delayed Release(Dr/Ec)
1 cap PO DAILY
Eliquis 5 MG tablet
5 mg PO BID
Discontinued
metoprolol succinate 100 MG tablet extended release 24 hr
50 mg PO DAILY
Discharge Orders:
Discharge Patient (As Directed); Ordered 12/01/24
Ordered By: Inez Peña
Care Plan Goals
Care Plan Goals:
Problem: Readiness for enhanced knowledge related to diagnosis and treatment plan
Goal: Understand your diagnosis and treatment plan needs, including medications if applicable.
Instructions: Know your diagnosis, underlying causes and treatment plan options, including medications if applicable. Consult with your health care team to learn about your diagnosis and treatment plan, including medications if applicable.
Discharge Date and Time
Print Language: ESTONIAN
[2024-12-01] MEDS: ProAmatine PO (09:53)
--- NOTE | 2024-12-01 09:58 | W.PN.CD ---
Today's Communication / Plan
-
continue eliquis
discharge planning
Impression / Plan
-
79year old male with h/o MR, PAF, HTN and hyperlipidemia who underwent Mitral valve repair 11/27/24
PMH
Paroxysmal atrial fibrillation
Hypertension
Hyperlipidemia
History of prostate cancer
History of GI bleeding
GERD
Pancreatitis
Gout
# Mitral valve repair (2 sets of [place]-Juan cords placed to the P2 scallop and a 36 mm band annuloplasty) via right minithoracotomy, Left atrial cryo maze and left atrial appendage exclusion
- EKG: sinus mechelle
-Tele: sinus
# HTN
-stable on metoprolol succinate 12.5mg daily
# Paroxysmal A fib
- in sinus post op
- resumed Eliquis 5mg bid
#Weakness, low BP
-improved
-midodrine stopped
Physical Exam
Vital Signs/Labs
Vital Signs
Temp Pulse Resp BP Pulse Ox
98 F 66 16 135/66 96
12/01/24 08:00 12/01/24 08:00 12/01/24 08:00 12/01/24 08:21 12/01/24 00:29
11/30/24 12/01/24 12/02/24
06:59 06:59 06:59
Actual Weight 88.6 kg
11/30/24 03:58
11/30/24 03:58
PT 17.4 Sec (11.4-14.6) H 11/26/24 17:44
INR 1.37 11/26/24 17:44
APTT 31.8 Sec (23.4-35.0) 11/26/24 17:44
Magnesium 3.0 mg/dl (1.6-2.3) H 11/30/24 03:58
Triglycerides Cancelled 11/30/24 09:17
LDL Cholesterol, Calc Cancelled 11/30/24 09:17
VLDL Cholesterol, Calc Cancelled 11/30/24 09:17
HDL Cholesterol Cancelled 11/30/24 09:17
Physical Exam
Constitutional: No acute distress and Comfortable
EENT: Moist mucous membranes
Cardiovascular: Rhythm & rate is regular, Pedal edema is absent, JVD pressure is normal and Systolic murmur absent
Respiratory: Respiratory effort normal and Lungs clear to auscul.
Neuro/Psych: AO x 3
Data Reviewed
-
Date of Service: December 01, 2024
EKG: Other (Tele: SR/SB 50s-60s)
Labs: Labs Reviewed by me
[2024-12-01 10:20] VITALS: BP 132/76
[2024-12-01 10:23] VITALS: BP 132/76; BP 135/66; PULSE 80; O2SAT 96
[2024-12-01 10:56] VITALS: BP 139/81
--- NOTE | 2024-12-01 12:58 | CM ---
Reviewed chart. Met with Mr. Mccann to review discharge plans. He states he is feeling well and maybe able to go home soon. He states he has ambulated and done the stairs. He states prior to admission he resides with his spouse in a two story
home with three steps to enter. He states he has a full flight of steps to get to bedroom/full bathroom. He states he has a powder room on the first floor. He states he has a full flight of steps to go to his man cave in the basement. He states
prior to admission he was independent with ambulation and adls. He states he has a prescription plan. He states his spouse will be home to assist in his care if needed. We reviewed a home visit by the Transitional Care Nurse. He is agreeable to a
home visit. Medical work-up in progress. The discharge plan is to return home with his spouse and a home visit by the Transitional Care Nurse when medically stable.
[2024-12-01 14:43] VITALS: BP 147/73
--- NOTE | 2024-12-01 15:14 | PTCARENOTE ---
PT given all discharge instructions; all appointments reviewed; all medications reviewed; PT verbalized all discharge instructions and S/S of complications that need either warrent a call to physician or 911 call; PT showered w/ CHG soap; IV's x2
removed; pt dressed and awaiting ride home w/ spouse.
== END 2024-12-01 16:39 | disposition home or self-care (01) | DRG 220 ==
LOC: CVICU 07:21
PROVIDERS: Physician Assistant Medical; Physician Assistant Surgical; ADMITTING PHYSICIAN Thoracic Surgery (Cardiothoracic Vascular Surgery); CONSULT PHYSICIAN Internal Medicine Critical Care Medicine; CONSULT PHYSICIAN Psychiatry & Neurology Neurology; FAMILY PHYSICIAN Family Medicine
PROC: 02L70CK Occlusion of Left Atrial Appendage with Extraluminal Device, Open Approach (ICD-10-PCS; 2024-11-26)
PROC: 02UG0JZ Supplement Mitral Valve with Synthetic Substitute, Open Approach (ICD-10-PCS; 2024-11-26)
PROC: 02580ZZ Destruction of Conduction Mechanism, Open Approach (ICD-10-PCS; 2024-11-26)
PROC: 5A1221Z Performance of Cardiac Output, Continuous (ICD-10-PCS; 2024-11-26)
DX: I34.0 Nonrheumatic mitral (valve) insufficiency (principal); D62 Acute posthemorrhagic anemia; N17.9 Acute kidney failure, unspecified; J95.811 Postprocedural pneumothorax; J98.11 Atelectasis; I48.0 Paroxysmal atrial fibrillation; I10 Essential (primary) hypertension; K21.9 Gastro-esophageal reflux disease without esophagitis; M10.9 Gout, unspecified; E78.00 Pure hypercholesterolemia, unspecified; E86.1 Hypovolemia; E87.70 Fluid overload, unspecified; R55 Syncope and collapse; H53.8 Other visual disturbances; Y83.2 Surgical operation with anastomosis, bypass or graft as the cause of abnormal reaction of the patient, or of later complication, without mention of misadventure at the time of the procedure; T42.6X5A Adverse effect of other antiepileptic and sedative-hypnotic drugs, initial encounter; K76.0 Fatty (change of) liver, not elsewhere classified; Z79.01 Long term (current) use of anticoagulants; Z79.899 Other long term (current) drug therapy; Z85.46 Personal history of malignant neoplasm of prostate; Z87.891 Personal history of nicotine dependence
CPT/HCPCS: 93308; 0042T; 36415; 70450; 70496; 70498; 71045; 71046; 71270; 74178; 80048; 80053; 80061; 81003; 81015; 82248; 82330; 82565; 82805; 82810; 82947; 82962; 83036; 83735; 84132; 84302; 84520; 85014; 85018; 85025; 85027; 85049; 85610; 85730; 86850; 86900; 86901; 86920; 87070; 93005; 93312; 93320; 93321; 93325; 93880; 94002; J2916; Q9967

== ENCOUNTER → 2024-12-04 08:20 | Outpatient (REF) | payer MEDICARE, OTHER, SELFPAY | LOC: REG 08:20 | PROVIDERS: ATTENDING PHYSICIAN Thoracic Surgery (Cardiothoracic Vascular Surgery); FAMILY PHYSICIAN Family Medicine | DX: R06.02 Shortness of breath (principal) | CPT/HCPCS: 71046 ==

== ENCOUNTER 2024-12-31 16:18 | Outpatient (RCR) | payer MEDICARE, OTHER, SELFPAY | END 2024-12-31 23:59 | disposition home or self-care (01) | LOC: CRHB 16:18 | PROVIDERS: ATTENDING PHYSICIAN Internal Medicine Cardiovascular Disease; FAMILY PHYSICIAN Family Medicine | DX: Z95.4 Presence of other heart-valve replacement (principal) | CPT/HCPCS: G0422; G0423 ==

== ENCOUNTER 2025-01-23 16:00 | Outpatient (RCR) | payer MEDICARE, OTHER, SELFPAY | END 2025-01-23 23:59 | disposition home or self-care (01) | LOC: CRHB 16:00 | PROVIDERS: ATTENDING PHYSICIAN Internal Medicine Cardiovascular Disease; FAMILY PHYSICIAN Family Medicine | DX: Z95.4 Presence of other heart-valve replacement (principal) | CPT/HCPCS: G0422; G0423 ==

== ENCOUNTER 2025-03-02 16:20 | Outpatient (RCR) | payer MEDICARE, OTHER, SELFPAY | END 2025-03-02 23:59 | disposition home or self-care (01) | LOC: CRHB 16:20 | PROVIDERS: ATTENDING PHYSICIAN Internal Medicine Cardiovascular Disease; FAMILY PHYSICIAN Family Medicine | DX: Z95.4 Presence of other heart-valve replacement (principal) | CPT/HCPCS: G0422; G0423 ==

== ENCOUNTER 2025-04-03 16:46 | Outpatient (RCR) | payer MEDICARE, OTHER, SELFPAY ==
[2025-03-31 09:20] LABS: HDL Cholesterol 50 mg/dl; LDL Cholesterol, Calculated 95 mg/dl; Very Low Density Lipoprotein 29 mg/dl (0-30)
== END 2025-04-03 23:59 | disposition home or self-care (01) ==
LOC: CRHB 16:46
PROVIDERS: ATTENDING PHYSICIAN Internal Medicine Cardiovascular Disease; FAMILY PHYSICIAN Family Medicine
DX: Z95.4 Presence of other heart-valve replacement (principal)
CPT/HCPCS: 36415; 80061; G0422; G0423

== ENCOUNTER 2025-04-10 16:19 | Outpatient (RCR) | payer MEDICARE, OTHER, SELFPAY | END 2025-04-15 10:21 | disposition home or self-care (01) | LOC: CRHB 16:19 | PROVIDERS: ATTENDING PHYSICIAN Internal Medicine Cardiovascular Disease; FAMILY PHYSICIAN Family Medicine | DX: Z95.4 Presence of other heart-valve replacement (principal) | CPT/HCPCS: G0422; G0423 ==

== ENCOUNTER → 2025-04-14 07:06 | Outpatient (REF) | payer MEDICARE, OTHER, SELFPAY | LOC: HWRCS 07:06 | PROVIDERS: ATTENDING PHYSICIAN Nurse Practitioner Acute Care; FAMILY PHYSICIAN Family Medicine; REFERRING PHYSICIAN Internal Medicine Cardiovascular Disease | DX: Z98.890 Other specified postprocedural states (principal) | CPT/HCPCS: 93306 ==